=== PATIENT | female | born 1950 | race Hispanic/Latino ===

== ENCOUNTER → 2018-08-08 | Outpatient (CLI) | payer OTHER, MEDICARE ==
[~2018-08-08] MED LIST: DEXL60CA3 PO; DICY10CA13 PO; DULO30CA2 PO; ESOM40CA PO; INSLAN SQ; INSU100I3 SQ; METF-444 PO; ONDA4TAB9 PO
== END | disposition home or self-care (01) ==
LOC: OIH 14:38
PROVIDERS: ATTEND Family Medicine
DX: M47.814 Spondylosis without myelopathy or radiculopathy, thoracic region (principal)
CPT/HCPCS: 71100

== ENCOUNTER → 2019-04-16 | Outpatient (CLI) | payer MEDICARE, OTHER ==
[~2019-04-16] MED LIST changes: +ONDA-104 PO; -ONDA4TAB9 PO
== END | disposition home or self-care (01) ==
LOC: OIH 12:01
PROVIDERS: ATTEND Family Medicine
DX: R05 Cough (principal)
CPT/HCPCS: 71046

== ENCOUNTER → 2020-07-24 | Outpatient (CLI) | payer OTHER, MEDICARE | END | disposition home or self-care (01) | LOC: OIH 11:11 | PROVIDERS: ATTEND Internal Medicine | DX: J44.9 Chronic obstructive pulmonary disease, unspecified (principal) | CPT/HCPCS: 71046 ==

== ENCOUNTER 2021-10-28 12:51 | Emergency (ER) | payer OTHER, MEDICARE ==
[~2021-10-28] VITALS: Ht 157.5 cm; Wt 73.5 kg
[2021-10-28 12:53] VITALS: BP 176/70
[2021-10-28 13:16] LABS: BASOPHILS % (AUTO) 0.7 % (0.0-5.0); EOSINOPHILS % (AUTO) 2.5 % (0.0-8.0); HEMATOCRIT 39.5 % (36-48); LYMPHOCYTES % (AUTO) 28.6 % (21.0-51.0); MEAN CORPUSCULAR HEMOGLOBIN 28.3 pg (27.0-33.0); MEAN CORPUSCULAR HGB CONC 32.9 g/dL (32.0-36.0); MEAN CORPUSCULAR VOLUME 86.1 fL (79-99); MONOCYTES % (AUTO) 7.1 % (3.0-13.0); NEUTROPHILS % (AUTO) 60.7 % (40.0-77.0); PLATELET COUNT (AUTO) 130 K/uL (130-400); RED BLOOD CELL COUNT(AUTO) 4.59 MIL/uL (4.00-5.50); RED CELL DISTRIBUTION WIDTH 13.6 % (11.0-15.5); WHITE BLOOD COUNT (AUTO) 4.5 K/uL (4.8-10.8)
[2021-10-28 13:31] LABS: CREATININE 1.1 mg/dL (0.5-1.5); POTASSIUM 4.4 mmol/L (3.5-5.1)
[2021-10-28 13:35] LABS: ALBUMIN 3.5 g/dL (3.5-5.0); TOTAL PROTEIN, SERUM 7.4 g/dL (6.0-8.3)
[2021-10-28 14:32] LABS: APPEARANCE,URINE CLEAR (CLEAR); BILIRUBIN,URINE NEGATIVE (NEGATIVE); COLOR,URINE YELLOW (YELLOW); GLUCOSE, URINE (UA) NEGATIVE (NEGATIVE); KETONES,URINE NEGATIVE (NEGATIVE); LEUKOCYTE ESTERASE ,URINE NEGATIVE (NEGATIVE); NITRATE,URINE NEGATIVE (NEGATIVE); OCCULT BLOOD,URINE SMALL (NEGATIVE); PROTEIN,URINE TRACE mg/dL (NEGATIVE); UROBILINOGEN,URINE 0.2 mg/dL (0.2-1.0)
[2021-10-28 14:40] LABS: BACTERIA,URINE Rare /HPF (None Seen); RBC,URINE 0-1 /HPF (0-1); SQUAMOUS EPITHELIAL CELL,UR Few /HPF (0-2)
== END 2021-10-28 16:59 | disposition home or self-care (01) ==
LOC: EDH 12:51
DX: R42 Dizziness and giddiness (principal); E11.9 Type 2 diabetes mellitus without complications; E78.00 Pure hypercholesterolemia, unspecified; Z79.899 Other long term (current) drug therapy
CPT/HCPCS: 36415; 80053; 81001; 84484; 85025; 93005; 93880

== ENCOUNTER → 2021-12-16 | Outpatient (CLI) | payer OTHER, MEDICARE | END | disposition home or self-care (01) | LOC: OIH 13:24 | PROVIDERS: ATTEND Internal Medicine Cardiovascular Disease | DX: I08.2 Rheumatic disorders of both aortic and tricuspid valves (principal); E11.9 Type 2 diabetes mellitus without complications; E78.5 Hyperlipidemia, unspecified; R42 Dizziness and giddiness | CPT/HCPCS: 93306 ==

== ENCOUNTER → 2021-12-31 | Outpatient (CLI) | payer OTHER, MEDICARE | END | disposition home or self-care (01) | LOC: SHCH 13:14 | PROVIDERS: ATTEND Internal Medicine Cardiovascular Disease | DX: I87.2 Venous insufficiency (chronic) (peripheral) (principal) | CPT/HCPCS: 93970 ==

== ENCOUNTER 2023-01-06 16:45 | Emergency (ER) | payer OTHER, MEDICARE ==
[~2023-01-06] VITALS: Ht 157.5 cm; Wt 78.9 kg
[~2023-01-06 16:45] MED LIST changes: +BENZ-226 PO; +BUDE10.2 IH; -DEXL60CA3 PO; -DICY10CA13 PO; -DULO30CA2 PO; -ESOM40CA PO; +FAMO40TA7 PO; +FLUT1BLS3 IH; +GLIM4TAB36 PO; +GUAI10LI14 PO; -INSLAN SQ; -INSU100I3 SQ; +LEVO25CA4 PO; -METF-444 PO; +MONT-39 PO; +NAPR-1023 PO; -ONDA-104 PO; +PANT40TA54 PO; +PIOG30TA70 PO; +SIMV40TA59 PO; +SITA100T12 PO; +SULF1TAB89 PO
[2023-01-06 17:08] VITALS: BP 179/75; PULSE 70; RESP 16
[2023-01-06] MEDS ORDERED: ACETAMINOPHEN 325 MG TAB PO ONE (19:00)
== END 2023-01-06 19:15 | disposition home or self-care (01) ==
LOC: EDH 16:45
DX: S20.212A Contusion of left front wall of thorax, initial encounter (principal); E11.9 Type 2 diabetes mellitus without complications; E78.00 Pure hypercholesterolemia, unspecified; Z79.51 Long term (current) use of inhaled steroids; Z79.84 Long term (current) use of oral hypoglycemic drugs; Z79.899 Other long term (current) drug therapy; Y99.8 Other external cause status; V89.2XXA Person injured in unspecified motor-vehicle accident, traffic, initial encounter; Y93.89 Activity, other specified; Y92.89 Other specified places as the place of occurrence of the external cause
CPT/HCPCS: 71101

== ENCOUNTER → 2024-02-16 | Outpatient (CLI) | payer OTHER, MEDICARE ==
[~2024-02-16] MED LIST changes: -FAMO40TA7 PO; -GUAI10LI14 PO; +METO10TA3 PO; -NAPR-1023 PO; +PREG150C47 PO; -SULF1TAB89 PO
--- NOTE | 2024-02-16 16:41 | HMCIMG ---
FOOT LIMITED 2VWS LT REASON: Pain in left hand, LOW BACKPAIN, FOOT PAIN, SHOULDER PAIN TECHNIQUE: 2 views were obtained. FINDINGS: There is no evidence of fracture or dislocation. There is no joint effusion. The soft tissues appear unremarkable. There is no evidence of a radiopaque foreign body. IMPRESSION: No acute findings.
--- NOTE | 2024-02-16 16:42 | HMCIMG ---
EXAM: LUMBAR SPINE 2-3VWS REASON: Pain in left hand, LOW BACKPAIN, FOOT PAIN, SHOULDER PAIN. COMPARISON: None. TECHNIQUE: 3 views of the lumbar spine were obtained. FINDINGS: There is normal appearance of the lumbar vertebral bodies. Disc interspace heights are preserved. Alignment is normal. There are no visible fractures. Soft tissues appear unremarkable. IMPRESSION: 1. Normal lumbar spine.
--- NOTE | 2024-02-16 16:42 | HMCIMG ---
SHOULDER COMP 2+VWS LT REASON: FOOT PAIN, KNEE PAIN TECHNIQUE: 2 views were obtained. FINDINGS: There is no evidence of fracture or dislocation. There is no joint effusion. The soft tissues appear unremarkable. There is no evidence of a radiopaque foreign body. IMPRESSION: No acute findings.
--- NOTE | 2024-02-16 16:43 | HMCIMG ---
SHOULDER COMP 2+VWS RT REASON: FOOT PAIN, KNEE PAIN, SAHOULDER PAIN TECHNIQUE: 2 views were obtained. FINDINGS: There is no evidence of fracture or dislocation. There is no joint effusion. The soft tissues appear unremarkable. There is no evidence of a radiopaque foreign body. IMPRESSION: No acute findings.
--- NOTE | 2024-02-16 16:44 | HMCIMG ---
HANDS BILAT, 2VWS EACH REASON: HAND PAIN COMPARISON: None TECHNIQUE: 2 views were obtained of each hand. FINDINGS: There is moderate osteoarthritis in the second through fifth IP joint of each hand. Remaining joint spaces appear better preserved. The radiocarpal joints where not well visualized. There are no focal osseous lesions. There are no abnormal calcifications. Soft tissues appear unremarkable. IMPRESSION: 1. 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
--- NOTE | 2024-02-16 16:45 | HMCIMG ---
FOOT COMP 3+VWS RT REASON: FOOT PAIN TECHNIQUE: 2 views were obtained. FINDINGS: There is no evidence of fracture or dislocation. There is no joint effusion. The soft tissues appear unremarkable. There is no evidence of a radiopaque foreign body. IMPRESSION: No acute findings.
--- NOTE | 2024-02-16 16:45 | HMCIMG ---
KNEE 2VW BILATERAL REASON: FOOT PAIN, KNEE PAIN COMPARISON: None TECHNIQUE: 2 views were obtained of each knee. FINDINGS: Both knees show normal findings. Joint spaces are preserved. There is no varus or valgus strangulation. There are no focal osseous lesions. There are no joint effusions. IMPRESSION: 1. Normal 2 view exam of each knee.
== END | disposition home or self-care (01) ==
LOC: OIH 13:59
PROVIDERS: ATTEND Internal Medicine
DX: M19.041 Primary osteoarthritis, right hand (principal); M19.042 Primary osteoarthritis, left hand; M54.16 Radiculopathy, lumbar region; M79.642 Pain in left hand; M79.672 Pain in left foot; M79.641 Pain in right hand; M79.671 Pain in right foot; M25.512 Pain in left shoulder; M25.511 Pain in right shoulder; M25.562 Pain in left knee; M25.561 Pain in right knee
CPT/HCPCS: 72100; 73030; 73565; 73620; 73630; 73560

== ENCOUNTER 2024-09-25 14:44 | Inpatient (IN) | payer OTHER, MEDICARE ==
[~2024-09-25] VITALS: Ht 154.9 cm; Wt 78.4 kg
[~2024-09-25 14:44] MED LIST changes: +BACL5TAB PO; -BENZ-226 PO; -BUDE10.2 IH; -FLUT1BLS3 IH; -LEVO25CA4 PO; +LEVO25CA5 PO; +RESM80TA PO
--- NOTE | 2024-09-25 15:23 | ERN ---
ED Note History of Present Illness Stated Complaint: BLOOD IN STOOL/ WEAKNESS Chief Complaint: Bloody Stool Time Seen by MD: 14:45 Dictation: Patient is a 53-year-old female coming in today with complaints of melena stools and generalized body weakness with decreased appetite onset this morning. She states she ate very little yesterday and then this morning noticed she was having melena stools. She denies abdominal pain no change in urination. Denies any use of blood thinners. No fever no chills. Allergies: Coded Allergies: No Known Allergies (Unverified Allergy, Unknown, 08/30/13) Home Meds Active Scripts Pantoprazole Sodium (Pantoprazole Sodium) 40 Mg Tablet.dr, 40 MG PO BID, #60 TAB 0 Refills Prov:JOSEFINA MOSQUEDA ELECTRICAL INSTALLATION SUPERVISOR 02/09/23 Reported Medications Baclofen (Baclofen) 5 Mg Tablet, 5 TAB PO HS 07/17/24 Resmetirom (Rezdiffra) 80 Mg Tablet, 80 MG PE PO AM 07/17/24 Pregabalin (Pregabalin) 150 Mg Capsule, 150 MG PO BID, CAP 09/15/23 Metoclopramide HCl (Metoclopramide HCl) 10 Mg Tablet, 10 MG PO TIDAC, TAB 09/15/23 Simvastatin (ZOCOR) 40 Mg Tablet, 10 MG PO HS, TAB 03/27/22 Levothyroxine Sodium (Levothyroxine) 25 Mcg Capsule, 25 MCG PO ACBKFST, CAP 03/27/22 Pioglitazone HCl (Pioglitazone HCl) 30 Mg Tablet, 30 MG PO DAILY, TAB 03/27/22 Sitagliptin Phosphate (Januvia) 100 Mg Tablet, 100 MG PO DAILY, TAB 03/27/22 Montelukast Sodium (Montelukast Sodium) 10 Mg Tablet, 10 MG PO DAILY, TAB 03/27/22 Glimepiride (Glimepiride) 4 Mg Tablet, 8 MG PO DAILY, TAB 03/27/22 Past Medical History Past Medical History: Diabetes-Type II, Hypertension Additional Past Medical Hx: OSTEOPEROSIS Surgical History: None Social History: Negative, Lives with family History: Not Applicable RN Note Reviewed/Agreed w/PFSH: Yes Review of System Dictation CONSTITUTIONAL: NEGATIVE EXCEPT FOR HPI GB W HEAD/FACE: NEGATIVE EXCEPT FOR HPI EENT: NEGATIVE EXCEPT FOR HPI RESPIRATORY: NEGATIVE EXCEPT FOR HPI GASTROINTESTINAL/ABDOMINAL: NEGATIVE EXCEPT FOR HPI MELENA STOOLS ONSET THIS MORNING GENITOURINARY: NEGATIVE EXCEPT FOR HPI MUSCULOSKELETAL: NEGATIVE EXCEPT FOR HPI INTEGUMENTARY: NEGATIVE EXCEPT FOR HPI NEUROLOGICAL/PSYCH: NEGATIVE EXCEPT FOR HPI HEMATOLOGIC/LYMPHATIC: NEGATIVE EXCEPT FOR HPI ALL SYSTEMS NEGATIVE, EXCEPT NOTED ABOVE. 13 POINT REVIEW OF SYSTEMS ASSESSED AND ALL NEGATIVE EXCEPT FOR ABOVE. Initial Vital Sign VS Vital Signs Date Time Temp Pulse Resp B/P (MAP) Pulse Ox O2 Delivery O2 Flow Rate FiO2 09/25/24 15:10 98.2 94 22 108/64 100 Room Air 09/25/24 15:25 0 21 Physical Exam Dictation VITAL SIGNS REVIEWED GENERAL APPEARANCE: ALERT, ORIENTED X 3, NO ACUTE DISTRESS, WELL DEVELOPED, NOURISHED. MILDLY OBESE HEAD AND FACE: NON-TRAUMATIC. EYES: PERRL, PINK CONJUNCTIVAS, EYELID NO TRAUMA, ANTERIOR CHAMBER WITH ARCUS SENILIS. EARS: PINNAS INTACT AND NO SIGNS OF TRAUMA OR ERYTHEMA EAR CANALS CLEAR AND NO DISCHARGE TM NO ERYTHEMA NOSE: NO DISCHARGE, NO BLEEDING. OROPHARYNX: MOUTH NORMAL, TONGUE PAIN PHARYNX CLEAR,NO ERYTHEMA, TONSILS NO EXUDATES, NO ABSCESSES NOTED, MUCOUS MEMBRANE MOIST NECK: SUPPLE, NON-TENDER, NO THYROMEGALY, NO MASSES, NO JVD, NO BRUITS BREAST:DEFERRED CHEST:NO TENDERNESS, NO CREPITUS, NO PARADOXICAL MOVEMENT, NO RETRACTIONS LUNGS:CLEAR, WELL-VENTILATED, SYMMETRIC, NO RALES, NO WHEEZING, NO RHONCHI, NO STRIDOR, GOOD BREATH SOUNDS BILATERALLY HEART: REGULAR RATE, REGULAR RHYTHM, NO MURMUR, NO GALLOPS VASCULAR: NO PERIPHERAL EDEMA, ABDOMEN: SOFT, POSITIVE BOWEL SOUNDS, NONDISTENDED, NO GUARDING, NONTENDER, NO REBOUND, NO MASSES NO HEPATOMEGALY, NO SPLENOMEGALY, NO GLEASON'S SIGN, NO HERNIAS. RECTAL: DEFERRED GENITAL: DEFERRED NEUROLOGICAL: NORMAL SPEECH, MOTOR FUNCTION INTACT, SENSORY FUNCTION INTACT MUSCULOSKELETAL: NECK NONTENDER, FULL RANGE OF MOTION, BACK NONTENDER, FULL RANGE OF MOTION, EXTREMITIES: NONTENDER, FULL RANGE OF MOTION SKIN: COLOR PINK, DRY, NO TURGOR, NO RASH, NO LACERATIONS, NO ABRASIONS, NO CONTUSIONS. LYMPHATIC: DEFERRED Results (Laboratory/Radiology) Laboratory/Radiology Laboratory Tests Test 09/25/24 16:03 09/25/24 17:17 White Blood Count 7.0 K/uL (4.8-10.8) Red Blood Count 3.18 MIL/uL (4.00-5.50) L Hemoglobin 9.2 g/dL (12.0-16.0) L Hematocrit 28.2 % (36-48) L Mean Corpuscular Volume 88.7 fL (79-99) Mean Corpuscular Hemoglobin 28.9 pg (27.0-33.0) Mean Corpuscular Hemoglobin Concent 32.6 g/dL (32.0-36.0) Red Cell Distribution Width 14.7 % (11.0-15.5) Platelet Count 138 K/uL (130-400) Mean Platelet Volume 11.8 fL (7.5-10.5) H Immature Granulocyte % (Auto) 0.6 % (0-1) Neutrophils (%) (Auto) 65.4 % (40.0-77.0) Lymphocytes (%) (Auto) 25.2 % (21.0-51.0) Monocytes (%) (Auto) 7.8 % (3.0-13.0) Eosinophils (%) (Auto) 0.6 % (0.0-8.0) Basophils (%) (Auto) 0.4 % (0.0-5.0) Neutrophils # (Auto) 4.6 K/uL (1.8-7.7) Lymphocytes # (Auto) 1.8 K/uL (1.0-4.8) Monocytes # (Auto) 0.6 K/uL (0.1-1.0) Eosinophils # (Auto) 0.04 K/uL (0.00-0.70) Basophils # (Auto) 0.03 K/uL (0.00-0.20) Absolute Immature Granulocyte (auto 0.04 K/uL (0-1) Nucleated Red Blood Cells 0.0 % (0.0-0.19) Sodium Level 139 mmol/L (136-145) Potassium Level 4.9 mmol/L (3.5-5.1) Chloride Level 106 mmol/L (101-111) Carbon Dioxide Level 27 mmol/L (21-32) Blood Urea Nitrogen 82 mg/dL (7-18) *H Creatinine 1.1 mg/dL (0.5-1.0) H Glomerular Filtration Rate Calc 53 mL/min (>90) Random Glucose 146 mg/dL (70-105) H Total Calcium 8.8 mg/dL (8.5-10.1) Troponin I High Sensitivity 10 ng/L (4-50) Lipase 35 U/L (16-77) Urine Color COLORLESS (YELLOW) Urine Appearance CLEAR (CLEAR) Urine pH 5.0 (5.0-8.0) Urine Specific [place] 1.018 (1.001-1.031) Urine Protein NEGATIVE mg/dL (NEGATIVE) Urine Glucose (UA) NEGATIVE mg/dL (NEGATIVE) Urine Ketones NEGATIVE mg/dL (NEGATIVE) Urine Occult Blood MODERATE (NEGATIVE) H Urine Nitrate NEGATIVE (NEGATIVE) Urine Bilirubin NEGATIVE mg/dL (NEGATIVE) Urine Urobilinogen 0.2 mg/dL (0.2-1.0) Urine Leukocyte Esterase 75 [place]/uL (NEGATIVE) H Urine RBC None /HPF (0-1) Urine WBC 2-5 /HPF (0-1) H Urine Squamous Epithelial Cells RARE /HPF (0-2) Urine Bacteria None /HPF (None Seen) Labs Reviewed?: Yes ED Course ED Course Orders Procedure Category Date Status Time Cbc With Differential LAB 09/25/24 Complete 15:21 Urinalysis Profile LAB 09/25/24 Complete 15:21 Occult Blood Stool LAB 09/25/24 In Process Single Only 15:21 Lipase LAB 09/25/24 Complete 15:21 Basic Metabolic Panel LAB 09/25/24 Complete 15:21 Famotidine 20mg Vial PHA 09/25/24 Complete (Pepcid 20mg Vial) 15:30 Troponin I High LAB 09/25/24 Complete Sensitivity 15:41 12 Lead Ekg Tracing- EKG 09/25/24 Complete Technical 15:41 Culture Urine FRANK 09/25/24 In Process 17:29 Current Medications Medications (Trade) Dose Ordered Sig/Adam Route PRN Reason Start Time Stop Time Status Last Admin Dose Admin Famotidine (Pepcid 20mg Vial) 20 mg ONCE ONCE IV 09/25/24 15:30 09/25/24 15:31 DC 09/25/24 16:58 Vital Signs Date Time Temp Pulse Resp B/P (MAP) Pulse Ox O2 Delivery O2 Flow Rate FiO2 09/25/24 15:25 98.2 91 22 108/64 100 Room Air* 0 21 09/25/24 15:10 98.2 94 22 108/64 100 Room Air 1740/spoke with Cruz PLATA hospitalist reviewed guaiac stool, labs and interventions to include Pepcid he agreed to admit patient. Medical Decision Making MDM MDM: Differential diagnosis: GI bleed/anemia/electrolyte imbalance/dehydration/ACS for weakness Rationale: Tests considered and ordered secondary to shared decision making include: labs, ECG and radiology Previous outside records reviewed: Old ER visits. Risk of complication and/or morbidity or mortality of patient management: None Medications-Per medication reconciliation Need for hospitalization: Patient does meet criteria for hospitalization. NPO, ppi, fluids, gastroenterology follow up Need for emergency major/minor surgery: No There are no social concerns with this patient. Prescription drug management Prescriptions will include symptomatic care Patient's prior external medical records from other ER visits were reviewed by me as indicated. Prior testing and results from previous visits were reviewed. Prior tests were taken into account with medical decision making and resource utilization, independent historian/historians were used to obtain complete medical history. I independently interpreted the test that were performed, results were reviewed by me and considered findings on radiology if ordered. Medical management and examination interpretation discussions were had by me with other qualified healthcare professionals as indicated for the patient's care. DX & DISP Disposition: Inpatient Decision to Admit Time: 17:45 Departure Impression: Primary Impression: GI bleeding Additional Impressions: Anemia, Stage 3 chronic kidney disease, Uncontrolled diabetes mellitus Condition: Stable Referrals: DEANGELO TUTTLE MD (PCP) Time of Disposition: 17:45 I have reviewed the case, and I agree with, Diagnosis and Plan SADIA SHANE ELECTRICAL INSTALLATION SUPERVISOR Sep 25, 2024 15:23
--- NOTE | 2024-09-25 15:52 | EKG ---
[facility] Test Date: 2024-09-25 Test Time: 15:48:26 Pat Name: AYANNA HERNANDEZ Department: ED Room: Gender: F Systems Analyst Developer: [id number] : [id number] Requested By: SADIA SHANE Order Number: [id number] Reading MD: Hank Nunn Measurements Intervals [place] Rate: 80 P: 53 DE: 130 QRS: -36 QRSD: 88 T: 47 QT: 351 QTc: 406 Interpretive Statements Sinus rhythm Left axis deviation Compared to ECG 07/16/2024 13:37:43 Left-axis deviation now present Electronically Signed On 09-25-2024 18:18:16 CDT by Hank Nunn Please click the below link to view image of tracing.
[2024-09-25 16:12] LABS: BASOPHILS # (AUTO) 0.03 K/uL (0.00-0.20); BASOPHILS % (AUTO) 0.4 % (0.0-5.0); EOSINOPHILS # (AUTO) 0.04 K/uL (0.00-0.70); EOSINOPHILS % (AUTO) 0.6 % (0.0-8.0); HEMATOCRIT 28.2 % (36-48); IMMATURE GRANULOCYTE ABSOLUTE 0.04 K/uL (0-1); LYMPHOCYTES # (AUTO) 1.8 K/uL (1.0-4.8); LYMPHOCYTES % (AUTO) 25.2 % (21.0-51.0); MEAN CORPUSCULAR HEMOGLOBIN 28.9 pg (27.0-33.0); MEAN CORPUSCULAR HGB CONC 32.6 g/dL (32.0-36.0); MEAN CORPUSCULAR VOLUME 88.7 fL (79-99); MONOCYTES # (AUTO) 0.6 K/uL (0.1-1.0); MONOCYTES % (AUTO) 7.8 % (3.0-13.0); NEUTROPHILS # (AUTO) 4.6 K/uL (1.8-7.7); NEUTROPHILS % (AUTO) 65.4 % (40.0-77.0); PLATELET COUNT (AUTO) 138 K/uL (130-400); RED BLOOD CELL COUNT(AUTO) 3.18 MIL/uL (4.00-5.50); RED CELL DISTRIBUTION WIDTH 14.7 % (11.0-15.5)
[2024-09-25 16:34] LABS: CREATININE 1.1 mg/dL (0.5-1.0); POTASSIUM 4.9 mmol/L (3.5-5.1)
[2024-09-25] MEDS: FAMOTIDINE 20MG VIAL IV ONE (16:58)
[2024-09-25 17:26] LABS: APPEARANCE,URINE CLEAR (CLEAR); BILIRUBIN,URINE NEGATIVE (NEGATIVE); COLOR,URINE COLORLESS (YELLOW); GLUCOSE, URINE (UA) NEGATIVE (NEGATIVE); KETONES,URINE NEGATIVE (NEGATIVE); LEUKOCYTE ESTERASE ,URINE 75 Leu/uL (NEGATIVE); NITRATE,URINE NEGATIVE (NEGATIVE); OCCULT BLOOD,URINE MODERATE (NEGATIVE); PROTEIN,URINE NEGATIVE (NEGATIVE); UROBILINOGEN,URINE 0.2 mg/dL (0.2-1.0)
[2024-09-25 17:29] LABS: ADD UA MICROSCOPIC YES
[2024-09-25 17:36] LABS: SQUAMOUS EPITHELIAL CELL,UR RARE /HPF (0-2)
--- NOTE | 2024-09-25 17:53 | HP ---
[facility] HISTORY & PHYSICAL Date Patient Seen: Sep 25, 2024 Time of Visit: 1900 Supervising Physician: [Dr. Christian Reyna] Primary Care Physician: [ Dr. Soledad Browne] Outpatient Specialists: [ ] Inpatient Consults: [GI-Dr. Hawley ] PROBLEM LIST: Melena-POA Blood-loss anemia-POA LINO on CKD 3-POA Dehydration-POA Enterocolitis per CT AP-POA Primary HTN Diabetes mellitus Chronic pain HLD Chronic anemia HX of small bowel AVM's Prior EGD revealed erythematous duodenopathy (07/2024) PLAN: -Admit to medsurg -Type and screen, transfuse if Hg drops below 7 -Clear liquids then NPO p MN -Consult GI, Dr. Hawley, appreciate recommendation -IV Protonix BID -obtain iron studies -Avoid NSAIDS and blood thinners -Manage N/V and pain PRN -IV fluids for hydration -CT abdomen and pelvis revealed enterocolitis: We will start on IV Zosyn -obtain renal ultrasound HPI: [Patient is a 73-year-old female with PMH significant for HTN, dm, chronic anemia, CKD who was presented to the ED concerning acute onset man in his started this morning. Patient claims that she did not eat or drink anything when she started having black stool. She reports a total of 8-10 episodes of melanotic stool. She denies other constitutional symptoms and there was no hematemesis, hematochezia or abdominal pain. Patient reports that around July, she had a similar episode and had undergone endoscopic procedure but without significant findings. Physical assessment was unrevealing without abdominal tenderness. Goals of care were discussed with the patient verbalizes understanding and agreement. Clinical Specialty Rep services provided by labor supervisor Americo. ] PAST MEDICAL HX: see above PAST SURGICAL HX: noncontributory SOCIAL HISTORY: No tobacco, ETOH, or illicit drug use Coded Allergies: No Known Allergies (Unverified Allergy, Unknown, 08/30/13) REVIEW OF SYSTEMS: 12 point ROS reviewed with patient. Pertinent positives mentioned above. Otherwise negative. PHYSICAL EXAM: GENERAL: alert, weak, awake oriented x 3 HEENT: EOMI, Sclera non icteric, moist mucosa NECK: Supple, no JVD, trachea midline LUNGS: Clear breath sounds bilaterally. No wheezes HEART: Regular rate and rhythm. Normal S1 and S2, without murmurs ABD: Abdomen soft, nontender. Bowel sounds present EXT: No clubbing cyanosis or edema NEURO: Alert and oriented to person, follows commands Vital Signs (last 8hr) Date Time Temp Pulse Resp B/P (MAP) Pulse Ox O2 Delivery O2 Flow Rate FiO2 09/25/24 15:25 98.2 91 22 108/64 100 Room Air* 0 21 09/25/24 15:10 98.2 94 22 108/64 100 Room Air LABS: Hematology Labs: Test 09/25/24 16:03 Range/Units White Blood Count 7.0 4.8-10.8 K/uL Red Blood Count 3.18 L 4.00-5.50 MIL/uL Hemoglobin 9.2 L 12.0-16.0 g/dL Hematocrit 28.2 L 36-48 % Mean Corpuscular Volume 88.7 79-99 fL Mean Corpuscular Hemoglobin 28.9 27.0-33.0 pg Mean Corpuscular Hemoglobin Concent 32.6 32.0-36.0 g/dL Red Cell Distribution Width 14.7 11.0-15.5 % Platelet Count 138 130-400 K/uL Mean Platelet Volume 11.8 H 7.5-10.5 fL Immature Granulocyte % (Auto) 0.6 0-1 % Neutrophils (%) (Auto) 65.4 40.0-77.0 % Lymphocytes (%) (Auto) 25.2 21.0-51.0 % Monocytes (%) (Auto) 7.8 3.0-13.0 % Eosinophils (%) (Auto) 0.6 0.0-8.0 % Basophils (%) (Auto) 0.4 0.0-5.0 % Neutrophils # (Auto) 4.6 1.8-7.7 K/uL Lymphocytes # (Auto) 1.8 1.0-4.8 K/uL Monocytes # (Auto) 0.6 0.1-1.0 K/uL Eosinophils # (Auto) 0.04 0.00-0.70 K/uL Basophils # (Auto) 0.03 0.00-0.20 K/uL Absolute Immature Granulocyte (auto 0.04 0-1 K/uL Nucleated Red Blood Cells 0.0 0.0-0.19 % Chemistry Labs: Test 09/25/24 16:03 Range/Units Sodium Level 139 136-145 mmol/L Potassium Level 4.9 3.5-5.1 mmol/L Chloride Level 106 101-111 mmol/L Carbon Dioxide Level 27 21-32 mmol/L Blood Urea Nitrogen 82 *H 7-18 mg/dL Creatinine 1.1 H 0.5-1.0 mg/dL Glomerular Filtration Rate Calc 53 >90 mL/min Random Glucose 146 H 70-105 mg/dL Total Calcium 8.8 8.5-10.1 mg/dL Troponin I High Sensitivity 10 4-50 ng/L Lipase 35 16-77 U/L DIAGNOSTICS / RADIOLOGY RESULTS: [ ] PLAN NEURO: Minimize central acting medications as possible. Maintain fall precautions, adequate lighting during the day PULMONARY: Supplemental 02 as needed. Maintain aspiration precautions at all times CARDIOVASCULAR: Follow hemodynamics. Vital signs per facility protocol GI & NUTRITION: Continue with nutritional support. Continue stool softeners and laxatives as needed. KIDNEYS & ELECTROLYTES: Strict monitoring of intake, output and overall fluid balance. Avoid nephrotoxic medications to the extent possible. Medications to be dosed according to renal function. Monitor electrolytes and replace as needed ENDOCRINE: Maintain blood glucose between 100-180 at all times. Hypoglycemia protocol in place INFECTIOUS DISEASE: Trend temperature, WBC and procalcitonin level Follow cultures, deescalate antibiotics as soon as possible. Panculture if new onset fever ONCOLOGY/HEMATOLOGY/COAGULATION: Monitor for s/s of bleeding Monitor hemoglobin, coagulation studies as needed SKIN: Pressure ulcer prevention per facility protocol Specialty mattress ORTHO/REHAB: Continue PT/OT Prophylaxis: Continue GI and DVT prophylaxis: No anticoagulant due to GI bleed Code Status: Full Resuscitation Disposition: TBD Other: Total patient care time : 35 minutes SYLVAIN REAVES Sep 25, 2024 17:53
[2024-09-25] MEDS ORDERED: LAbetaLOL 20MG SYG IV PRN (18:00)
[2024-09-25] MEDS ORDERED: cloNIDine HCL 0.1 MG TABLET PO PRN (18:00)
[2024-09-25] MEDS ORDERED: acetaMINOPHEN 325 MG TAB PO PRN (18:00)
[2024-09-25] MEDS ORDERED: LACTULOSE 20 GM/30 ML UDCUP PO PRN (18:00)
[2024-09-25] MEDS ORDERED: ondanSETRON 4MG INJ IVP PRN (18:00)
[2024-09-25 18:16] LABS: RETICULOCYTE % (AUTO) 2.2 % (0.42-2.23)
[2024-09-25 18:22] LABS: HEMATOCRIT 25.9 % (36-48)
[2024-09-25 18:36] LABS: % IRON SATURATION 81.8 % (22-44)
[2024-09-25] MEDS: LACTATED RINGERS 1000ML 1,000 ML IV SCH (18:43)
[2024-09-25] MEDS: 0.9% NACL 500ML IV.SOLN 500 ML IV ONE (18:46)
--- NOTE | 2024-09-25 20:35 | NUR ---
GI CONSULT COMPLETED, SPOKE WITH DR PERAZA. TELEPHONE ORDERS RECEIVED, PLACED IN PT CHART. CSO MADE AWARE OF EGD MORNING SCHEDULE.
[2024-09-25] MEDS: INSULIN humuLIN R 100 UNIT/ML 3ML SQ SCH (21:00)
[2024-09-25] MEDS ORDERED: PANTOPrazole 40 MG/VIAL IVP SCH (21:00)
[2024-09-25] MEDS: PANTOPrazole 40MG INJ 80 MG in 0.9%NACL 100ML 100 ML IV SCH (21:20)
[2024-09-25] MEDS: octREOtide aceTATe 100 MCG/ML AMP IV ONE (21:20)
[2024-09-25] MEDS: octREOtide aceTATe 1,250 MCG in 0.9% NACL 250ML 250 ML IV SCH (21:21)
[2024-09-25 21:30] LABS: INR 1.08 (0.85-1.15); PROTHROMBIN TIME 11.4 SEC (9.6-11.6)
[2024-09-25 21:31] LABS: PARTIAL THROMBOPLASTIN TIME 23.2 SEC (26.3-35.5)
--- NOTE | 2024-09-25 22:06 | HMCIMG ---
CT ABDOMEN W/O CONTRAST HISTORY: melena TECHNIQUE: CT ABDOMEN W/O CONTRAST . Oral contrast was not given. Sagittal and coronal reformats were obtained. CT was performed with one or more of the following dose reduction techniques: Automated exposure control, adjustment of the mA and/or kV according to the patient's size, or use of the iterative reconstruction technique. Comparison: None. FINDINGS: Mild atelectatic changes are seen in the lung bases. Liver and gallbladder are within normal limits. The spleen, pancreas, and adrenal glands are within normal limits. No hydronephrosis seen. Atrophic lobulated right kidney. Consider correlation with renal ultrasound. Fluid-filled loops of small bowel and colon which may represent enterocolitis the proper clinical setting. No bowel obstruction identified. Appendix is not clearly visualized limiting evaluation. Correlate clinically. Degenerative changes of the spine. Visualized aorta is normal in caliber. IMPRESSION: 1. No hydronephrosis seen. Atrophic lobulated right kidney. Consider correlation with renal ultrasound. 2. Fluid-filled loops of small bowel and colon which may represent enterocolitis the proper clinical setting.
--- NOTE | 2024-09-25 22:32 | NUR ---
REPORT GIVEN TO JCARLOS BLAKELY.
[2024-09-25 23:00] VITALS: O2SAT 99
[2024-09-25] MEDS ORDERED: FERS325 PO (23:15)
--- NOTE | 2024-09-25 23:21 | CONS ---
GASTROENTEROLOGY CONSULTATION NOTE Date of Consultation: Sep 25, 2024 Time of Consultation: 23:21 History of Present Illness: [ ] Review of Systems: CONSTITUTIONAL: No malaise or change in sensation of wellbeing. ENMT: No rhinorrhea, otorrhea, sinus pain, ear ache. CARDIOVASCULAR: No angina, palpitations, orthopnea or paroxysmal dyspnea. RESPIRATORY: No SOB. GASTROINTESTINAL: No abdominal pain, nausea, vomiting, diarrhea, hematemesis, melena or change in the patient's habitual bowel movements consistency/number. GENITOURINARY: No dysuria, hematuria or change in bladder continence. MUSCULOSKELETAL: No new muscle pain or decrease in muscular strength. No new joint swelling, redness or tenderness. SKIN: No new rash. Past Medical History: [ ] Past Surgical History: [ ] Past Social History: [ ] Family History: [ ] Coded Allergies: No Known Allergies (Unverified Allergy, Unknown, 08/30/13) Physical Exam: GEN: Awake, alert, oriented in person, time and place, and in no acute distress. HEENT: No sinus tenderness. Tympanic membranes were not examined. No rhinorrhea. Oral pharyngeal mucosa is pink, moist and within normal limits. Neck is supple with no cervical lymphadenopathy, thyromegaly or JVD. CHEST: Inspection, palpation and percussion of the chest were unremarkable. Lung auscultation revealed normal breath sounds bilaterally. CARDIAC: PMI is within normal limits. Heart sounds are regular. Normal S1, S2. No gallop or murmur. ABD: Soft, non-tender and not distended. No peritoneal signs on palpation. No organomegaly. Normal bowel sounds. EXT: No cyanosis or clubbing. No edema. SKIN: Intact. No rashes. JOINTS: No evidence of synovitis or acute arthritis. NEURO: Alert and oriented to name, place and person. Cranial nerve examination is unremarkable. No focal motor deficits. Normal speech. Gait is normal. Strength is normal. Vital Sign (Last 24 Hours) 09/25/24 22:16 Temp 98.1 Pulse 78 Resp 20 B/P (MAP) 159/64 Pulse Ox 100 O2 Delivery Room Air* O2 Flow Rate 0 FiO2 21 Laboratory: [ ] Laboratory: Test 09/25/24 21:11 09/25/24 21:05 09/25/24 18:09 09/25/24 17:17 Range/Units Whole Blood Glucose 95 70-110 MG/DL Prothrombin Time 11.4 9.6-11.6 SEC Prothromb Time International Ratio 1.08 0.85-1.15 Activated Partial Thromboplast Time 23.2 L 26.3-35.5 SEC Hemoglobin 8.4 L 12.0-16.0 g/dL Hematocrit 25.9 L 36-48 % Urine Color COLORLESS YELLOW Urine Appearance CLEAR CLEAR Urine pH 5.0 5.0-8.0 Urine Specific [place] 1.018 1.001-1.031 Urine Protein NEGATIVE NEGATIVE mg/dL Urine Glucose (UA) NEGATIVE NEGATIVE mg/dL Urine Ketones NEGATIVE NEGATIVE mg/dL Urine Occult Blood MODERATE H NEGATIVE Urine Nitrate NEGATIVE NEGATIVE Urine Bilirubin NEGATIVE NEGATIVE mg/dL Urine Urobilinogen 0.2 0.2-1.0 mg/dL Urine Leukocyte Esterase 75 H NEGATIVE [place]/uL Urine RBC None 0-1 /HPF Urine WBC 2-5 H 0-1 /HPF Urine Squamous Epithelial Cells RARE 0-2 /HPF Urine Bacteria None None Seen /HPF Stool Occult Blood POSITIVE H NEGATIVE Test 09/25/24 16:03 09/25/24 16:01 Range/Units White Blood Count 7.0 4.8-10.8 K/uL Red Blood Count 3.18 L 4.00-5.50 MIL/uL Mean Corpuscular Volume 88.7 79-99 fL Mean Corpuscular Hemoglobin 28.9 27.0-33.0 pg Mean Corpuscular Hemoglobin Concent 32.6 32.0-36.0 g/dL Red Cell Distribution Width 14.7 11.0-15.5 % Platelet Count 138 130-400 K/uL Mean Platelet Volume 11.8 H 7.5-10.5 fL Immature Granulocyte % (Auto) 0.6 0-1 % Neutrophils (%) (Auto) 65.4 40.0-77.0 % Lymphocytes (%) (Auto) 25.2 21.0-51.0 % Monocytes (%) (Auto) 7.8 3.0-13.0 % Eosinophils (%) (Auto) 0.6 0.0-8.0 % Basophils (%) (Auto) 0.4 0.0-5.0 % Neutrophils # (Auto) 4.6 1.8-7.7 K/uL Lymphocytes # (Auto) 1.8 1.0-4.8 K/uL Monocytes # (Auto) 0.6 0.1-1.0 K/uL Eosinophils # (Auto) 0.04 0.00-0.70 K/uL Basophils # (Auto) 0.03 0.00-0.20 K/uL Absolute Immature Granulocyte (auto 0.04 0-1 K/uL Nucleated Red Blood Cells 0.0 0.0-0.19 % Sodium Level 139 136-145 mmol/L Potassium Level 4.9 3.5-5.1 mmol/L Chloride Level 106 101-111 mmol/L Carbon Dioxide Level 27 21-32 mmol/L Blood Urea Nitrogen 82 *H 7-18 mg/dL Creatinine 1.1 H 0.5-1.0 mg/dL Glomerular Filtration Rate Calc 53 >90 mL/min Random Glucose 146 H 70-105 mg/dL Total Calcium 8.8 8.5-10.1 mg/dL Troponin I High Sensitivity 10 4-50 ng/L Lipase 35 16-77 U/L Reticulocyte Count (auto) 2.72942 0.42-2.23 % Immature Reticulocyte Fraction 16.70 H 0.18-0.48 % Iron Level 248 H 50-170 mcg/dL Total Iron Binding Capacity 303 250-450 mcg/dL Percent Iron Saturation 81.8 H 22-44 % Ferritin 55 15-150 ng/mL Current Medications Medications (Trade) Dose Ordered Sig/Adam Route PRN Reason Start Time Stop Time Status Last Admin Dose Admin Acetaminophen (TYLenol 325MG TAB) 650 mg Q6H PRN PO FEVER/MILD PAIN LEVEL 1-3 09/25/24 18:00 10/25/24 17:59 Clonidine HCl (CATApres 0.1 mg TAB) 0.1 mg Q6H PRN PO IF SBP GREATER THAN 160 09/25/24 18:00 10/25/24 17:59 Insulin Human Regular (humuLIN R 100 UNIT/ML 3ML) INSULIN SLIDING SCAL... ACHS SQ 09/25/24 21:00 10/25/24 20:59 Labetalol HCl (TRANdate 20MG SYG) 10 mg Q2H PRN IV SBP GREATER THAN 180 09/25/24 18:00 10/25/24 17:59 Lactated Ringer's 1,000 ml @ 125 mls/hr Q8H IV 09/25/24 18:00 10/25/24 17:59 09/25/24 18:43 125 MLS/HR Lactulose (Constulose 20gm/ 30ml Udcup) 20 gm Q6H PRN PO CONSTIPATION 09/25/24 18:00 10/25/24 17:59 Octreotide Acetate 1250 mcg/ Sodium Chloride 250 ml @ 0 mls/hr PROTOCOL IV 09/25/24 21:00 10/25/24 20:59 09/25/24 21:21 5 MLS/HR Ondansetron HCl (zoFRAN 4MG INJ) 4 mg Q6H PRN IVP NAUSEA/VOMITING 09/25/24 18:00 10/25/24 17:59 Pantoprazole Sodium (PROTonix 40MG INJ) 40 mg BID IVP 09/25/24 21:00 09/25/24 20:54 DC Pantoprazole Sodium 80 mg/ Sodium Chloride 100 ml @ 10 mls/hr Q10H IV 09/25/24 21:00 10/25/24 20:59 09/25/24 21:20 10 MLS/HR Diagnostics / Radiology: [COPY/PASTE HERE IF NO REPORTS PLEASE DELETE SECTION] Assessment: [ ] Plan: [ ] CARMINA TRAVIS [employer] Sep 25, 2024 23:21
[2024-09-26] VITALS (15 sets, daily range): BP systolic 96–130; BP diastolic 44–69; PULSE 63–78; RESP 15–20; TEMP 97.2–98.4; O2SAT 97–99
[2024-09-26 00:36] LABS: HEMATOCRIT 23.6 % (36-48)
[2024-09-26] MEDS: ZOSYN 3.375GM +NS 50ML IV SCH (01:59)
[2024-09-26 04:16] LABS: CREATININE 1.2 mg/dL (0.5-1.0); MAGNESIUM 1.9 mg/dL (1.80-2.40); PHOSPHORUS 3.3 mg/dL (2.5-4.9); THYROID STIMULATING HORMONE 1.05 uIU/mL (0.36-3.74)
[2024-09-26 04:31] LABS: BASOPHILS # (AUTO) 0.02 K/uL (0.00-0.20); BASOPHILS % (AUTO) 0.4 % (0.0-5.0); EOSINOPHILS # (AUTO) 0.04 K/uL (0.00-0.70); EOSINOPHILS % (AUTO) 0.9 % (0.0-8.0); HEMATOCRIT 23.8 % (36-48); IMMATURE GRANULOCYTE ABSOLUTE 0.02 K/uL (0-1); MEAN CORPUSCULAR HEMOGLOBIN 29.3 pg (27.0-33.0); MEAN CORPUSCULAR HGB CONC 33.2 g/dL (32.0-36.0); MEAN CORPUSCULAR VOLUME 88.1 fL (79-99); MONOCYTES # (AUTO) 0.3 K/uL (0.1-1.0); MONOCYTES % (AUTO) 7.2 % (3.0-13.0); NEUTROPHILS # (AUTO) 2.3 K/uL (1.8-7.7); NEUTROPHILS % (AUTO) 49.1 % (40.0-77.0); PLATELET COUNT (AUTO) 102 K/uL (130-400); RED CELL DISTRIBUTION WIDTH 15.1 % (11.0-15.5); WHITE BLOOD COUNT (AUTO) 4.7 K/uL (4.8-10.8)
--- NOTE | 2024-09-26 08:32 | NUR ---
PATIENT TRANSPORTED OFF UNIT VIA BED FOR SCHEDULED PROCEDURE Patient to have scheduled EGD with Dr. Yakov Hawley. Sandostatin Drip infusing at 25mcg/hr; Protonix drip infusing at 8mcg/hr.
[2024-09-26] MEDS ORDERED: proPOFol 10 MG/ML 20ML VIAL IV ONE (08:46)
[2024-09-26] MEDS ORDERED: LIDOCAINE PF 100MG/5ML (2%) SYRINGE 5ML ONE (08:47)
--- NOTE | 2024-09-26 10:48 | HMCIMG ---
US RENAL SONOGRAM HISTORY: Chronic renal disease COMPARISON: Ultrasound from 11/14/2014 TECHNIQUE: Renal and bladder ultrasound study was performed. FINDINGS: The right kidney measures 9 x 3.6 x 3.1 cm. The left kidney measures 10.4 x 5.2 x 4.4 cm. No evidence of hydronephrosis is seen of either kidney. Both kidneys are seen. Bladder is moderately distended. Bladder wall measures 4 mm. IMPRESSION: 1. No hydronephrosis is seen.
--- NOTE | 2024-09-26 11:32 | NUR ---
DCP: HOME Pt currently lives with her Marlo Khalil [phone]. Pt does not have insecurities with food, chcf, and/or utilities. Pt does not have DME, home health, or provider services. Pt is able to complete ADLs independently. PCP is Dr. Roberto Browne and uses [facility] for any RX needs. At [place] pt will go home and family will assist with transportation. Addendum: 09/26/24 at 1139 by NINFA WHITFIELD SS Amended: Links added.
[2024-09-26] MEDS ORDERED: COMPOUND IV REFRIGERATED 1 EACH IVSOLN MISC PRN (12:00)
--- NOTE | 2024-09-26 16:47 | PN ---
[facility] PROGRESS NOTE Date Patient Seen: Sep 26, 2024 Time of Visit: 16:47 Supervising Physician: Dr. Christian Reyna Primary Care Physician: [ Dr. Roberto Browne] Inpatient Consults: [GI-Dr. Hawley ] PROBLEM LIST: Melena-POA, on oral iron at home S/P EGD on 09/26/2024 with finding of chronic gastritis and normal duodenum Acute blood-loss anemia-POA Acute Enterocolitis per CT AP-POA LINO on CKD 3-POA Dehydration-POA Primary HTN Diabetes mellitus type 2 Chronic pain HLD Chronic anemia HX of small bowel AVM's Prior EGD revealed erythematous duodenopathy (07/2024) INTERVAL HISTORY: Patient assessed at bedside. AAOX3. Currently on room air. S/P EGD today with findings of chronic gastritis. Hemoglobin 7.9. Abdomen distended and complains of some pain. Continues on IV ABX. Will remain on liquid diet for now. Continue on protonix and IV fluids for now. Denies any nausea or vomiting. at bedside. REVIEW OF SYSTEMS: 12 point ROS reviewed with patient. Pertinent positives mentioned above. Otherwise negative. PHYSICAL EXAM: GENERAL: alert, weak, awake oriented x 3 HEENT: EOMI, Sclera non icteric, moist mucosa NECK: Supple, no JVD, trachea midline LUNGS: Clear breath sounds bilaterally. No wheezes HEART: Regular rate and rhythm. Normal S1 and S2, without murmurs ABD: Abdomen soft, nontender. Bowel sounds present EXT: No clubbing cyanosis or edema NEURO: Alert and oriented to person, follows commands Vital Signs (last 8hr) Date Time Temp Pulse Resp B/P (MAP) Pulse Ox O2 Delivery O2 Flow Rate FiO2 09/26/24 12:00 98.1 66 18 116/69 96 Room Air 21 09/26/24 09:45 97.3 74 15 100/55 96 Room Air 21 09/26/24 09:40 97.3 71 15 105/50 96 Room Air 21 09/26/24 09:35 97.3 69 15 104/51 96 Room Air 21 09/26/24 09:30 97.3 71 15 106/47 96 Room Air 21 09/26/24 09:25 97.3 70 15 103/51 97 Room Air 21 09/26/24 09:20 97.3 68 15 101/47 97 Room Air 21 09/26/24 09:15 97.3 64 15 104/49 98 Nasal Cannula 1.0 22 09/26/24 09:10 97.3 65 15 103/44 98 Nasal Cannula 3.0 28 09/26/24 09:02 Mask 10.0 09/26/24 09:02 Mask LABS: Hematology Labs: Test 09/26/24 11:45 09/26/24 03:34 09/25/24 16:01 Range/Units Hemoglobin 7.4 L 12.0-16.0 g/dL Hematocrit 24.0 L 36-48 % White Blood Count 4.7 #L 4.8-10.8 K/uL Red Blood Count 2.70 L 4.00-5.50 MIL/uL Mean Corpuscular Volume 88.1 79-99 fL Mean Corpuscular Hemoglobin 29.3 27.0-33.0 pg Mean Corpuscular Hemoglobin Concent 33.2 32.0-36.0 g/dL Red Cell Distribution Width 15.1 11.0-15.5 % Platelet Count 102 #L 130-400 K/uL Mean Platelet Volume 12.2 H 7.5-10.5 fL Immature Granulocyte % (Auto) 0.4 0-1 % Neutrophils (%) (Auto) 49.1 40.0-77.0 % Lymphocytes (%) (Auto) 42.0 21.0-51.0 % Monocytes (%) (Auto) 7.2 3.0-13.0 % Eosinophils (%) (Auto) 0.9 0.0-8.0 % Basophils (%) (Auto) 0.4 0.0-5.0 % Neutrophils # (Auto) 2.3 1.8-7.7 K/uL Lymphocytes # (Auto) 2.0 1.0-4.8 K/uL Monocytes # (Auto) 0.3 0.1-1.0 K/uL Eosinophils # (Auto) 0.04 0.00-0.70 K/uL Basophils # (Auto) 0.02 0.00-0.20 K/uL Absolute Immature Granulocyte (auto 0.02 0-1 K/uL Nucleated Red Blood Cells 0.0 0.0-0.19 % Reticulocyte Count (auto) 2.98296 0.42-2.23 % Immature Reticulocyte Fraction 16.70 H 0.18-0.48 % Chemistry Labs: Test 09/26/24 15:54 09/26/24 03:34 09/25/24 16:03 09/25/24 16:01 Range/Units Whole Blood Glucose 168 H 70-110 MG/DL Sodium Level 144 136-145 mmol/L Potassium Level 5.0 3.5-5.1 mmol/L Chloride Level 112 H 101-111 mmol/L Carbon Dioxide Level 27 21-32 mmol/L Blood Urea Nitrogen 65 H 7-18 mg/dL Creatinine 1.2 H 0.5-1.0 mg/dL Glomerular Filtration Rate Calc 48 >90 mL/min Random Glucose 158 H 70-105 mg/dL Total Calcium 8.5 8.5-10.1 mg/dL Phosphorus Level 3.3 2.5-4.9 mg/dL Magnesium Level 1.90 1.80-2.40 mg/dL Thyroid Stimulating Hormone (TSH) 1.05 0.36-3.74 uIU/mL Troponin I High Sensitivity 10 4-50 ng/L Lipase 35 16-77 U/L Iron Level 248 H 50-170 mcg/dL Total Iron Binding Capacity 303 250-450 mcg/dL Percent Iron Saturation 81.8 H 22-44 % Ferritin 55 15-150 ng/mL Coagulation Labs: Test 09/25/24 21:05 Range/Units Prothrombin Time 11.4 9.6-11.6 SEC Prothromb Time International Ratio 1.08 0.85-1.15 Activated Partial Thromboplast Time 23.2 L 26.3-35.5 SEC DIAGNOSTICS / RADIOLOGY RESULTS: NA PLAN NEURO: Minimize central acting medications as possible. Maintain fall precautions, adequate lighting during the day PULMONARY: Supplemental 02 as needed. Maintain aspiration precautions at all times CARDIOVASCULAR: Follow hemodynamics. Vital signs per facility protocol GI & NUTRITION: Continue with nutritional support. Continue stool softeners and laxatives as needed. KIDNEYS & ELECTROLYTES: Strict monitoring of intake, output and overall fluid balance. Avoid nephrotoxic medications to the extent possible. Medications to be dosed according to renal function. Monitor electrolytes and replace as needed ENDOCRINE: Maintain blood glucose between 100-180 at all times. Hypoglycemia protocol in place INFECTIOUS DISEASE: Trend temperature, WBC and procalcitonin level Follow cultures, deescalate antibiotics as soon as possible. Panculture if new onset fever ONCOLOGY/HEMATOLOGY/COAGULATION: Monitor for s/s of bleeding Monitor hemoglobin, coagulation studies as needed SKIN: Pressure ulcer prevention per facility protocol Specialty mattress ORTHO/REHAB: Continue PT/OT Prophylaxis: Continue GI and DVT prophylaxis: No anticoagulant due to GI bleed Code Status: Full Resuscitation Disposition: JOSEFINA HOLT NP Sep 26, 2024 16:47
[2024-09-27 03:45] VITALS: BP 103/53; PULSE 64; RESP 20; TEMP 98
[2024-09-27 04:52] LABS: BASOPHILS # (AUTO) 0.02 K/uL (0.00-0.20); BASOPHILS % (AUTO) 0.6 % (0.0-5.0); EOSINOPHILS # (AUTO) 0.09 K/uL (0.00-0.70); EOSINOPHILS % (AUTO) 2.8 % (0.0-8.0); HEMATOCRIT 21.4 % (36-48); IMMATURE GRANULOCYTE ABSOLUTE 0.04 K/uL (0-1); LYMPHOCYTES # (AUTO) 1.3 K/uL (1.0-4.8); LYMPHOCYTES % (AUTO) 41.5 % (21.0-51.0); MEAN CORPUSCULAR HEMOGLOBIN 29.1 pg (27.0-33.0); MEAN CORPUSCULAR HGB CONC 32.2 g/dL (32.0-36.0); MEAN CORPUSCULAR VOLUME 90.3 fL (79-99); MONOCYTES # (AUTO) 0.3 K/uL (0.1-1.0); MONOCYTES % (AUTO) 8.5 % (3.0-13.0); NEUTROPHILS # (AUTO) 1.4 K/uL (1.8-7.7); NEUTROPHILS % (AUTO) 45.3 % (40.0-77.0); PLATELET COUNT (AUTO) 77 K/uL (130-400); RED BLOOD CELL COUNT(AUTO) 2.37 MIL/uL (4.00-5.50); RED CELL DISTRIBUTION WIDTH 14.9 % (11.0-15.5); WHITE BLOOD COUNT (AUTO) 3.2 K/uL (4.8-10.8)
[2024-09-27 05:10] LABS: ALBUMIN 2.5 g/dL (3.5-5.0); BILIRUBIN,TOTAL 0.3 mg/dL (0.2-1.0); CREATININE 1.2 mg/dL (0.5-1.0); MAGNESIUM 1.8 mg/dL (1.80-2.40); POTASSIUM 4.2 mmol/L (3.5-5.1); TOTAL PROTEIN, SERUM 5.1 g/dL (6.0-8.3)
--- NOTE | 2024-09-27 06:00 | NUR ---
ORDERS GIVEN FOR 1 UNIT PRBCS FOR HGB 6.9 GOT CONSENT PT VERBALIZED UNDERSTANDING RISKS ANSD HAZARDS
--- NOTE | 2024-09-27 07:25 | NUR ---
ONE UNIT PRBCS STARTED FOR HGB 6.9 MOSHE HARTMAN WITNESSED REFER TO TRANSFUSION RECORD
[2024-09-27 08:00] VITALS: BP 116/37; PULSE 66; RESP 16; TEMP 98.3; O2SAT 98
--- NOTE | 2024-09-27 09:42 | PN ---
GASTROENTEROLOGY PROGRESS NOTE Date of Visit: Sep 27, 2024 Time of Visit: 09:42 Events / Notes: No acute events overnight. She had negative EGD. She had [facility] workup in July with negative findings. Review of Systems: CONSTITUTIONAL: No malaise or change in sensation of wellbeing. ENMT: No rhinorrhea, otorrhea, sinus pain, ear ache. CARDIOVASCULAR: No angina, palpitations, orthopnea or paroxysmal dyspnea. RESPIRATORY: No SOB. GASTROINTESTINAL: No abdominal pain, nausea, vomiting, diarrhea, hematemesis, melena or change in the patient's habitual bowel movements consistency/number. GENITOURINARY: No dysuria, hematuria or change in bladder continence. MUSCULOSKELETAL: No new muscle pain or decrease in muscular strength. No new joint swelling, redness or tenderness. SKIN: No new rash. Physical Exam: GEN: Awake, alert, oriented in person, time and place, and in no acute distress. HEENT: No sinus tenderness. Tympanic membranes were not examined. No rhinorrhea. Oral pharyngeal mucosa is pink, moist and within normal limits. Neck is supple with no cervical lymphadenopathy, thyromegaly or JVD. CHEST: Inspection, palpation and percussion of the chest were unremarkable. Lung auscultation revealed normal breath sounds bilaterally. CARDIAC: PMI is within normal limits. Heart sounds are regular. Normal S1, S2. No gallop or murmur. ABD: Soft, non-tender and not distended. No peritoneal signs on palpation. No organomegaly. Normal bowel sounds. EXT: No cyanosis or clubbing. No edema. SKIN: Intact. No rashes. JOINTS: No evidence of synovitis or acute arthritis. NEURO: Alert and oriented to name, place and person. Cranial nerve examination is unremarkable. No focal motor deficits. Normal speech. Gait is normal. Strength is normal. Vital Signs (last 8hr) Date Time Temp Pulse Resp B/P (MAP) Pulse Ox O2 Delivery O2 Flow Rate FiO2 09/27/24 08:00 98.2 66 16 116/37 99 Room Air 21 09/27/24 03:45 98.1 64 20 103/53 98 Room Air Laboratory: [ ] Laboratory: Test 09/27/24 05:39 09/27/24 04:19 09/26/24 03:34 09/25/24 21:05 Range/Units Whole Blood Glucose 136 H 70-110 MG/DL White Blood Count 3.2 L 4.8-10.8 K/uL Red Blood Count 2.37 L 4.00-5.50 MIL/uL Hemoglobin 6.9 *L 12.0-16.0 g/dL Hematocrit 21.4 L 36-48 % Mean Corpuscular Volume 90.3 79-99 fL Mean Corpuscular Hemoglobin 29.1 27.0-33.0 pg Mean Corpuscular Hemoglobin Concent 32.2 32.0-36.0 g/dL Red Cell Distribution Width 14.9 11.0-15.5 % Platelet Count 77 L 130-400 K/uL Mean Platelet Volume 11.7 H 7.5-10.5 fL Immature Granulocyte % (Auto) 1.3 H 0-1 % Neutrophils (%) (Auto) 45.3 40.0-77.0 % Lymphocytes (%) (Auto) 41.5 21.0-51.0 % Monocytes (%) (Auto) 8.5 3.0-13.0 % Eosinophils (%) (Auto) 2.8 0.0-8.0 % Basophils (%) (Auto) 0.6 0.0-5.0 % Neutrophils # (Auto) 1.4 L 1.8-7.7 K/uL Lymphocytes # (Auto) 1.3 1.0-4.8 K/uL Monocytes # (Auto) 0.3 0.1-1.0 K/uL Eosinophils # (Auto) 0.09 0.00-0.70 K/uL Basophils # (Auto) 0.02 0.00-0.20 K/uL Absolute Immature Granulocyte (auto 0.04 0-1 K/uL Nucleated Red Blood Cells 0.0 0.0-0.19 % Sodium Level 142 136-145 mmol/L Potassium Level 4.2 3.5-5.1 mmol/L Chloride Level 109 101-111 mmol/L Carbon Dioxide Level 27 21-32 mmol/L Blood Urea Nitrogen 30 H 7-18 mg/dL Creatinine 1.2 H 0.5-1.0 mg/dL Glomerular Filtration Rate Calc 48 >90 mL/min Random Glucose 138 H 70-105 mg/dL Total Calcium 8.0 L 8.5-10.1 mg/dL Magnesium Level 1.80 1.80-2.40 mg/dL Total Bilirubin 0.3 0.2-1.0 mg/dL Aspartate Amino Transf (AST/SGOT) 26 10-37 U/L Alanine Aminotransferase (ALT/SGPT) 30 12-78 U/L Alkaline Phosphatase 54 50-136 U/L Total Protein 5.1 L 6.0-8.3 g/dL Albumin 2.5 L 3.5-5.0 g/dL Phosphorus Level 3.3 2.5-4.9 mg/dL Thyroid Stimulating Hormone (TSH) 1.05 0.36-3.74 uIU/mL Prothrombin Time 11.4 9.6-11.6 SEC Prothromb Time International Ratio 1.08 0.85-1.15 Activated Partial Thromboplast Time 23.2 L 26.3-35.5 SEC Test 09/25/24 17:17 09/25/24 16:03 09/25/24 16:01 Range/Units Urine Color COLORLESS YELLOW Urine Appearance CLEAR CLEAR Urine pH 5.0 5.0-8.0 Urine Specific [place] 1.018 1.001-1.031 Urine Protein NEGATIVE NEGATIVE mg/dL Urine Glucose (UA) NEGATIVE NEGATIVE mg/dL Urine Ketones NEGATIVE NEGATIVE mg/dL Urine Occult Blood MODERATE H NEGATIVE Urine Nitrate NEGATIVE NEGATIVE Urine Bilirubin NEGATIVE NEGATIVE mg/dL Urine Urobilinogen 0.2 0.2-1.0 mg/dL Urine Leukocyte Esterase 75 H NEGATIVE [place]/uL Urine RBC None 0-1 /HPF Urine WBC 2-5 H 0-1 /HPF Urine Squamous Epithelial Cells RARE 0-2 /HPF Urine Bacteria None None Seen /HPF Stool Occult Blood POSITIVE H NEGATIVE Troponin I High Sensitivity 10 4-50 ng/L Lipase 35 16-77 U/L Reticulocyte Count (auto) 2.47176 0.42-2.23 % Immature Reticulocyte Fraction 16.70 H 0.18-0.48 % Iron Level 248 H 50-170 mcg/dL Total Iron Binding Capacity 303 250-450 mcg/dL Percent Iron Saturation 81.8 H 22-44 % Ferritin 55 15-150 ng/mL Current Medications Medications (Trade) Dose Ordered Sig/Adam Route PRN Reason Start Time Stop Time Status Last Admin Dose Admin Acetaminophen (TYLenol 325MG TAB) 650 mg Q6H PRN PO FEVER/MILD PAIN LEVEL 1-3 09/25/24 18:00 10/25/24 17:59 Clonidine HCl (CATApres 0.1 mg TAB) 0.1 mg Q6H PRN PO IF SBP GREATER THAN 160 09/25/24 18:00 10/25/24 17:59 Insulin Human Regular (humuLIN R 100 UNIT/ML 3ML) INSULIN SLIDING SCAL... ACHS SQ 09/25/24 21:00 10/25/24 20:59 Labetalol HCl (TRANdate 20MG SYG) 10 mg Q2H PRN IV SBP GREATER THAN 180 09/25/24 18:00 10/25/24 17:59 Lactated Ringer's 1,000 ml @ 125 mls/hr Q8H IV 09/25/24 18:00 10/25/24 17:59 09/26/24 23:25 125 MLS/HR Lactulose (Constulose 20gm/ 30ml Udcup) 20 gm Q6H PRN PO CONSTIPATION 09/25/24 18:00 10/25/24 17:59 Octreotide Acetate 1250 mcg/ Sodium Chloride 250 ml @ 0 mls/hr PROTOCOL IV 09/25/24 21:00 09/26/24 17:53 DC 09/25/24 21:21 5 MLS/HR Ondansetron HCl (zoFRAN 4MG INJ) 4 mg Q6H PRN IVP NAUSEA/VOMITING 09/25/24 18:00 10/25/24 17:59 Pantoprazole Sodium (PROTonix 40MG INJ) 40 mg BID IVP 09/25/24 21:00 09/25/24 20:54 DC Pantoprazole Sodium (PROTonix 40MG TAB) 40 mg DAILY PO 09/27/24 09:00 10/27/24 08:59 Pantoprazole Sodium 80 mg/ Sodium Chloride 100 ml @ 10 mls/hr Q10H IV 09/25/24 21:00 09/26/24 17:53 DC 09/26/24 05:39 10 MLS/HR Piperacillin Sod/ Tazobactam Sod (Zosyn 3.375gm+NS 50ml) 3.375 gm Q8H IV 09/26/24 02:00 10/06/24 01:59 09/27/24 01:55 3.375 GM Diagnostics / Radiology: [COPY/PASTE HERE IF NO REPORTS PLEASE DELETE SECTION] Assessment: Anemia of chronic disease[ ] Plan: Hematology consult CARMINA TRAVIS [facility] Sep 27, 2024 09:42
[2024-09-27] MEDS: PANTOPrazole 40 MG TAB DR PO SCH (10:36)
--- NOTE | 2024-09-27 11:05 | NUR ---
note transfusion finished at this time, no signs or symptoms of reaction, pt aaox4, afebrile
[2024-09-27 12:00] VITALS: BP 133/47; PULSE 61; RESP 16; TEMP 98.1
--- NOTE | 2024-09-27 14:20 | PN ---
[facility] PROGRESS NOTE Date Patient Seen: Sep 27, 2024 Time of Visit: 14:20 Supervising Physician: Dr. Christian Reyna Primary Care Physician: [ Dr. Roberto Browne] Inpatient Consults: [GI-Dr. Hawley ], (Oncologist) PROBLEM LIST: Melena-POA, on oral iron at home S/P EGD on 09/26/2024 with finding of chronic gastritis and normal duodenum Acute blood-loss anemia, POA, requiring PRBC on 09/27/[address] AP-POA LINO on CKD 3-POA Dehydration-POA Primary HTN Diabetes mellitus type 2 Chronic pain HLD Chronic anemia HX of small bowel AVM's Prior EGD revealed erythematous duodenopathy (07/2024) INTERVAL HISTORY: Patient assessed at bedside. AAOX3. Currently on room air. S/P EGD yesterday with findings of chronic gastritis. Hemoglobin 6.9, pending one PRBC to be transfused. Abdomen distention has resolved.. Continues on IV ABX. Will remain on liquid diet for now. Continue on Protonix and IV fluids for now. 1:1 done with BONI Aquino with GI who ordered a bleeding scan. Dr. Reynolds, patient oncologist consulted as well for recurrent anemia, patient states she is allergic to IV iron. Denies any nausea or vomiting. at bedside. REVIEW OF SYSTEMS: 12 point ROS reviewed with patient. Pertinent positives mentioned above. Otherwise negative. PHYSICAL EXAM: GENERAL: alert, weak, awake oriented x 3 HEENT: EOMI, Sclera non icteric, moist mucosa NECK: Supple, no JVD, trachea midline LUNGS: Clear breath sounds bilaterally. No wheezes HEART: Regular rate and rhythm. Normal S1 and S2, without murmurs ABD: Abdomen soft, nontender. Bowel sounds present EXT: No clubbing cyanosis or edema NEURO: Alert and oriented to person, follows commands Vital Signs (last 8hr) Date Time Temp Pulse Resp B/P (MAP) Pulse Ox O2 Delivery O2 Flow Rate FiO2 09/27/24 12:00 98.1 61 16 133/47 99 Room Air 21 09/27/24 08:00 98.2 66 16 116/37 99 Room Air 21 LABS: Hematology Labs: Test 09/27/24 04:19 09/25/24 16:01 Range/Units White Blood Count 3.2 L 4.8-10.8 K/uL Red Blood Count 2.37 L 4.00-5.50 MIL/uL Hemoglobin 6.9 *L 12.0-16.0 g/dL Hematocrit 21.4 L 36-48 % Mean Corpuscular Volume 90.3 79-99 fL Mean Corpuscular Hemoglobin 29.1 27.0-33.0 pg Mean Corpuscular Hemoglobin Concent 32.2 32.0-36.0 g/dL Red Cell Distribution Width 14.9 11.0-15.5 % Platelet Count 77 L 130-400 K/uL Mean Platelet Volume 11.7 H 7.5-10.5 fL Immature Granulocyte % (Auto) 1.3 H 0-1 % Neutrophils (%) (Auto) 45.3 40.0-77.0 % Lymphocytes (%) (Auto) 41.5 21.0-51.0 % Monocytes (%) (Auto) 8.5 3.0-13.0 % Eosinophils (%) (Auto) 2.8 0.0-8.0 % Basophils (%) (Auto) 0.6 0.0-5.0 % Neutrophils # (Auto) 1.4 L 1.8-7.7 K/uL Lymphocytes # (Auto) 1.3 1.0-4.8 K/uL Monocytes # (Auto) 0.3 0.1-1.0 K/uL Eosinophils # (Auto) 0.09 0.00-0.70 K/uL Basophils # (Auto) 0.02 0.00-0.20 K/uL Absolute Immature Granulocyte (auto 0.04 0-1 K/uL Nucleated Red Blood Cells 0.0 0.0-0.19 % Reticulocyte Count (auto) 2.85437 0.42-2.23 % Immature Reticulocyte Fraction 16.70 H 0.18-0.48 % Chemistry Labs: Test 09/27/24 10:47 09/27/24 04:19 09/26/24 03:34 09/25/24 16:03 Range/Units Whole Blood Glucose 166 H 70-110 MG/DL Sodium Level 142 136-145 mmol/L Potassium Level 4.2 3.5-5.1 mmol/L Chloride Level 109 101-111 mmol/L Carbon Dioxide Level 27 21-32 mmol/L Blood Urea Nitrogen 30 H 7-18 mg/dL Creatinine 1.2 H 0.5-1.0 mg/dL Glomerular Filtration Rate Calc 48 >90 mL/min Random Glucose 138 H 70-105 mg/dL Total Calcium 8.0 L 8.5-10.1 mg/dL Magnesium Level 1.80 1.80-2.40 mg/dL Total Bilirubin 0.3 0.2-1.0 mg/dL Aspartate Amino Transf (AST/SGOT) 26 10-37 U/L Alanine Aminotransferase (ALT/SGPT) 30 12-78 U/L Alkaline Phosphatase 54 50-136 U/L Total Protein 5.1 L 6.0-8.3 g/dL Albumin 2.5 L 3.5-5.0 g/dL Phosphorus Level 3.3 2.5-4.9 mg/dL Thyroid Stimulating Hormone (TSH) 1.05 0.36-3.74 uIU/mL Troponin I High Sensitivity 10 4-50 ng/L Lipase 35 16-77 U/L Test 09/25/24 16:01 Range/Units Iron Level 248 H 50-170 mcg/dL Total Iron Binding Capacity 303 250-450 mcg/dL Percent Iron Saturation 81.8 H 22-44 % Ferritin 55 15-150 ng/mL Coagulation Labs: Test 09/25/24 21:05 Range/Units Prothrombin Time 11.4 9.6-11.6 SEC Prothromb Time International Ratio 1.08 0.85-1.15 Activated Partial Thromboplast Time 23.2 L 26.3-35.5 SEC DIAGNOSTICS / RADIOLOGY RESULTS: NA PLAN NEURO: Minimize central acting medications as possible. Maintain fall precautions, adequate lighting during the day PULMONARY: Supplemental 02 as needed. Maintain aspiration precautions at all times CARDIOVASCULAR: Follow hemodynamics. Vital signs per facility protocol GI & NUTRITION: Continue with nutritional support. Continue stool softeners and laxatives as needed. follow GI recommendations KIDNEYS & ELECTROLYTES: Strict monitoring of intake, output and overall fluid balance. Avoid nephrotoxic medications to the extent possible. Medications to be dosed according to renal function. Monitor electrolytes and replace as needed ENDOCRINE: Maintain blood glucose between 100-180 at all times. Hypoglycemia protocol in place INFECTIOUS DISEASE: Trend temperature, WBC and procalcitonin level Follow cultures, deescalate antibiotics as soon as possible. Panculture if new onset fever ONCOLOGY/HEMATOLOGY/COAGULATION: Monitor for s/s of bleeding Monitor hemoglobin, coagulation studies as needed SKIN: Pressure ulcer prevention per facility protocol Specialty mattress ORTHO/REHAB: Continue PT/OT Prophylaxis: Continue GI and DVT prophylaxis: No anticoagulant due to GI bleed Code Status: Full Resuscitation Disposition: JOSEFINA HOLT NP Sep 27, 2024 14:20
[2024-09-27 16:00] VITALS: BP 111/49; PULSE 61; RESP 16; TEMP 98.2
[2024-09-27 20:00] VITALS: BP 149/49; PULSE 63; RESP 18; TEMP 98
[2024-09-27 20:32] LABS: HEMATOCRIT 29.6 % (36-48)
--- NOTE | 2024-09-27 22:13 | HMCIMG ---
NM GI BLOOD LOSS IMAG REASON: melena. COMPARISON: None TECHNIQUE: GI bleeding scan was performed with 27 mCi of technetium pertechnetate tagged RBCs through intravenous route. FINDINGS: No scintigraphic evidence of acute GI bleed is seen. IMPRESSION: No scintigraphic evidence of active GI bleed is seen.
[2024-09-27 23:32] VITALS: BP 123/41; PULSE 61; RESP 20; TEMP 98
[2024-09-28 03:50] VITALS: BP 140/50; PULSE 60; RESP 16; TEMP 98.1
[2024-09-28 04:46] LABS: HEMATOCRIT 26.2 % (36-48); MEAN CORPUSCULAR HEMOGLOBIN 29.2 pg (27.0-33.0); MEAN CORPUSCULAR HGB CONC 33.2 g/dL (32.0-36.0); MEAN CORPUSCULAR VOLUME 87.9 fL (79-99); PLATELET COUNT (AUTO) 65 K/uL (130-400); RED BLOOD CELL COUNT(AUTO) 2.98 MIL/uL (4.00-5.50); RED CELL DISTRIBUTION WIDTH 15.6 % (11.0-15.5); WHITE BLOOD COUNT (AUTO) 2.9 K/uL (4.8-10.8)
[2024-09-28 05:08] LABS: ALBUMIN 2.7 g/dL (3.5-5.0); BILIRUBIN,TOTAL 0.4 mg/dL (0.2-1.0); MAGNESIUM 1.7 mg/dL (1.80-2.40); POTASSIUM 4.1 mmol/L (3.5-5.1); TOTAL PROTEIN, SERUM 5.2 g/dL (6.0-8.3)
[2024-09-28 05:17] LABS: EOSINOPHILS % (MANUAL) 3 % (1-6); LYMPHOCYTES % (MANUAL) 34 % (22-44); MAN.DIFF COMMENT-IMPRESSION MANUAL DIFFERENTIAL; MONOCYTES % (MANUAL) 6 % (2-9); PLATELET MORPHOLOGY COMMENT DECREASED; SEGMENTED NEUTROPHILS % 57 % (40-70); TOTAL CELLS COUNTED 100
--- NOTE | 2024-09-28 07:35 | PN ---
GASTROENTEROLOGY PROGRESS NOTE Date of Visit: Sep 28, 2024 Time of Visit: 07:35 Events / Notes: No acute events overnight. She had negative EGD. She had BAY[facility] workup in July with negative findings. Review of Systems: CONSTITUTIONAL: No malaise or change in sensation of wellbeing. ENMT: No rhinorrhea, otorrhea, sinus pain, ear ache. CARDIOVASCULAR: No angina, palpitations, orthopnea or paroxysmal dyspnea. RESPIRATORY: No SOB. GASTROINTESTINAL: No abdominal pain, nausea, vomiting, diarrhea, hematemesis, melena or change in the patient's habitual bowel movements consistency/number. GENITOURINARY: No dysuria, hematuria or change in bladder continence. MUSCULOSKELETAL: No new muscle pain or decrease in muscular strength. No new joint swelling, redness or tenderness. SKIN: No new rash. Physical Exam: GEN: Awake, alert, oriented in person, time and place, and in no acute distress. HEENT: No sinus tenderness. Tympanic membranes were not examined. No rhinorrhea. Oral pharyngeal mucosa is pink, moist and within normal limits. Neck is supple with no cervical lymphadenopathy, thyromegaly or JVD. CHEST: Inspection, palpation and percussion of the chest were unremarkable. Lung auscultation revealed normal breath sounds bilaterally. CARDIAC: PMI is within normal limits. Heart sounds are regular. Normal S1, S2. No gallop or murmur. ABD: Soft, non-tender and not distended. No peritoneal signs on palpation. No organomegaly. Normal bowel sounds. EXT: No cyanosis or clubbing. No edema. SKIN: Intact. No rashes. JOINTS: No evidence of synovitis or acute arthritis. NEURO: Alert and oriented to name, place and person. Cranial nerve examination is unremarkable. No focal motor deficits. Normal speech. Gait is normal. Strength is normal. Vital Signs (last 8hr) Date Time Temp Pulse Resp B/P (MAP) Pulse Ox O2 Delivery O2 Flow Rate FiO2 09/28/24 03:50 98.1 60 16 140/50 100 Room Air Laboratory: [ ] Laboratory: Test 09/28/24 05:24 09/28/24 03:56 09/27/24 04:19 Range/Units Whole Blood Glucose 115 H 70-110 MG/DL White Blood Count 2.9 L 4.8-10.8 K/uL Red Blood Count 2.98 #L 4.00-5.50 MIL/uL Hemoglobin 8.7 L 12.0-16.0 g/dL Hematocrit 26.2 L 36-48 % Mean Corpuscular Volume 87.9 79-99 fL Mean Corpuscular Hemoglobin 29.2 27.0-33.0 pg Mean Corpuscular Hemoglobin Concent 33.2 32.0-36.0 g/dL Red Cell Distribution Width 15.6 H 11.0-15.5 % Platelet Count 65 L 130-400 K/uL Mean Platelet Volume 10.8 H 7.5-10.5 fL Segmented Neutrophils % 57 40-70 % Lymphocytes % (Manual) 34 22-44 % Monocytes % (Manual) 6 2-9 % Eosinophils % (Manual) 3 1-6 % Nucleated Red Blood Cells 0.0 0.0-0.19 % Differential Comment MANUAL DIFFERENTIAL White Cell Morphology Comment Platelet Morphology Comment DECREASED Red Blood Cell Morphology See comments Sodium Level 143 136-145 mmol/L Potassium Level 4.1 3.5-5.1 mmol/L Chloride Level 109 101-111 mmol/L Carbon Dioxide Level 30 21-32 mmol/L Blood Urea Nitrogen 16 7-18 mg/dL Creatinine 1.0 0.5-1.0 mg/dL Glomerular Filtration Rate Calc 60 >90 mL/min Random Glucose 129 H 70-105 mg/dL Total Calcium 8.4 L 8.5-10.1 mg/dL Magnesium Level 1.70 L 1.80-2.40 mg/dL Total Bilirubin 0.4 # 0.2-1.0 mg/dL Aspartate Amino Transf (AST/SGOT) 40 H 10-37 U/L Alanine Aminotransferase (ALT/SGPT) 39 # 12-78 U/L Alkaline Phosphatase 58 50-136 U/L Total Protein 5.2 L 6.0-8.3 g/dL Albumin 2.7 L 3.5-5.0 g/dL Immature Granulocyte % (Auto) 1.3 H 0-1 % Neutrophils (%) (Auto) 45.3 40.0-77.0 % Lymphocytes (%) (Auto) 41.5 21.0-51.0 % Monocytes (%) (Auto) 8.5 3.0-13.0 % Eosinophils (%) (Auto) 2.8 0.0-8.0 % Basophils (%) (Auto) 0.6 0.0-5.0 % Neutrophils # (Auto) 1.4 L 1.8-7.7 K/uL Lymphocytes # (Auto) 1.3 1.0-4.8 K/uL Monocytes # (Auto) 0.3 0.1-1.0 K/uL Eosinophils # (Auto) 0.09 0.00-0.70 K/uL Basophils # (Auto) 0.02 0.00-0.20 K/uL Absolute Immature Granulocyte (auto 0.04 0-1 K/uL Current Medications Medications (Trade) Dose Ordered Sig/Adam Route PRN Reason Start Time Stop Time Status Last Admin Dose Admin Acetaminophen (TYLenol 325MG TAB) 650 mg Q6H PRN PO FEVER/MILD PAIN LEVEL 1-3 09/25/24 18:00 10/25/24 17:59 Clonidine HCl (CATApres 0.1 mg TAB) 0.1 mg Q6H PRN PO IF SBP GREATER THAN 160 09/25/24 18:00 10/25/24 17:59 Insulin Human Regular (humuLIN R 100 UNIT/ML 3ML) INSULIN SLIDING SCAL... ACHS SQ 09/25/24 21:00 10/25/24 20:59 Labetalol HCl (TRANdate 20MG SYG) 10 mg Q2H PRN IV SBP GREATER THAN 180 09/25/24 18:00 10/25/24 17:59 Lactated Ringer's 1,000 ml @ 125 mls/hr Q8H IV 09/25/24 18:00 10/25/24 17:59 09/28/24 02:10 125 MLS/HR Lactulose (Constulose 20gm/ 30ml Udcup) 20 gm Q6H PRN PO CONSTIPATION 09/25/24 18:00 10/25/24 17:59 Octreotide Acetate 1250 mcg/ Sodium Chloride 250 ml @ 0 mls/hr PROTOCOL IV 09/25/24 21:00 09/26/24 17:53 DC 09/25/24 21:21 5 MLS/HR Ondansetron HCl (zoFRAN 4MG INJ) 4 mg Q6H PRN IVP NAUSEA/VOMITING 09/25/24 18:00 10/25/24 17:59 Pantoprazole Sodium (PROTonix 40MG INJ) 40 mg BID IVP 09/25/24 21:00 09/25/24 20:54 DC Pantoprazole Sodium (PROTonix 40MG TAB) 40 mg DAILY PO 09/27/24 09:00 10/27/24 08:59 09/27/24 10:36 40 MG Pantoprazole Sodium 80 mg/ Sodium Chloride 100 ml @ 10 mls/hr Q10H IV 09/25/24 21:00 09/26/24 17:53 DC 09/26/24 05:39 10 MLS/HR Piperacillin Sod/ Tazobactam Sod (Zosyn 3.375gm+NS 50ml) 3.375 gm Q8H IV 09/26/24 02:00 10/06/24 01:59 09/28/24 02:11 3.375 GM Diagnostics / Radiology: [COPY/PASTE HERE IF NO REPORTS PLEASE DELETE SECTION] Assessment: Anemia of chronic disease[ ] Plan: Hematology consult CARMINA TRAVIS [facility] Sep 28, 2024 07:35
[2024-09-28 08:00] VITALS: BP 120/57; PULSE 53; RESP 15; TEMP 98.3; O2SAT 97
--- NOTE | 2024-09-28 08:45 | CONS ---
HISTORY OF PRESENT ILLNESS: The patient was admitted with evidence of GI bleeding and severe anemia. EGD revealed evidence of gastritis. The patient was transfused with PRBC. She is feeling better. At this point, she is feeling better. She is also on IV antibiotics due to gastroenteritis and UTI. ALLERGIES: SHE EXPRESSED HAVING ALLERGIC REACTION TO IV IRON. PHYSICAL EXAMINATION: VITAL SIGNS: Stable, afebrile. GENERAL: The patient is alert, in no acute distress. HEART: Regular and rhythmic. LUNGS: With diminished breathing sounds on both bases. No crackles. ABDOMEN: Soft, no tenderness. No organomegaly. EXTREMITIES: No pitting edema, no calf tenderness. LABORATORY DATA: Reviewed. ASSESSMENT: * Severe iron deficiency anemia. * GI bleed. * Enterocolitis. PLAN: The patient remains stable after transfusion. No evidence of any active bleeding at this point. We will follow the bleeding scan. I recommend to have IV iron. I will premedicate with Solu-Medrol and Benadryl, and monitor closely. Continue to monitor with lab work. TID: [id number] RECEIPT: [id number]
[2024-09-28] MEDS: Solu-medROL 40MG VIAL IVP ONE (09:38)
[2024-09-28] MEDS: DiphenhydrAMINE HCL 50 MG/ML VIAL IV ONE (09:39)
[2024-09-28] MEDS: IRON sUCROse COMPLEX 300 MG in 0.9% NACL 250ML 250 ML IV ONE (10:35)
[2024-09-28 12:00] VITALS: BP 123/86; PULSE 55; RESP 15; TEMP 97.7
--- NOTE | 2024-09-28 15:23 | PN ---
[facility] PROGRESS NOTE Date Patient Seen: Sep 28, 2024 Time of Visit: 15:23 Supervising Physician: Dr. Christian Reyna Primary Care Physician: [ Dr. Roberto Browne] Inpatient Consults: [GI-Dr. Hawley ], (Oncologist) PROBLEM LIST: Melena-POA, on oral iron at home S/P EGD on 09/26/2024 with finding of chronic gastritis and normal duodenum Acute blood loss anemia, POA, requiring PRBC on 09/27/[address] AP, POA LINO on CKD 3, POA Dehydration, POA Primary HTN Diabetes mellitus type 2 Chronic pain Hyperlipidemia Chronic anemia HX of small bowel AVM's Prior EGD revealed erythematous duodenopathy (07/2024) INTERVAL HISTORY: Patient assessed at bedside. AAOX3. Currently on room air. Hemoglobin increased to 8.7 after PRBC transfusion yesterday. No s/s of bleeding. Oncology ordered IV iron but premedication with solu-medrol and Benadryl. Will advance diet to soft. Bleeding scan done yesterday is negative. 1:[address] Reynolds, plan is for outpatient bone marrow biopsy Denies any nausea or vomiting. at bedside. Anticipate discharge in AM if stable. REVIEW OF SYSTEMS: 12 point ROS reviewed with patient. Pertinent positives mentioned above. Otherwi se negative. PHYSICAL EXAM: GENERAL: alert, weak, awake oriented x 3 HEENT: EOMI, Sclera non icteric, moist mucosa NECK: Supple, no JVD, trachea midline LUNGS: Clear breath sounds bilaterally. No wheezes HEART: Regular rate and rhythm. Normal S1 and S2, without murmurs ABD: Abdomen soft, nontender. Bowel sounds present EXT: No clubbing cyanosis or edema NEURO: Alert and oriented to person, follows commands Vital Signs (last 8hr) Date Time Temp Pulse Resp B/P (MAP) Pulse Ox O2 Delivery O2 Flow Rate FiO2 09/28/24 12:00 97.7 55 15 123/86 97 Room Air 09/28/24 08:00 98.2 53 15 120/57 97 Room Air LABS: Hematology Labs: Test 09/28/24 03:56 09/27/24 04:19 Range/Units White Blood Count 2.9 L 4.8-10.8 K/uL Red Blood Count 2.98 #L 4.00-5.50 MIL/uL Hemoglobin 8.7 L 12.0-16.0 g/dL Hematocrit 26.2 L 36-48 % Mean Corpuscular Volume 87.9 79-99 fL Mean Corpuscular Hemoglobin 29.2 27.0-33.0 pg Mean Corpuscular Hemoglobin Concent 33.2 32.0-36.0 g/dL Red Cell Distribution Width 15.6 H 11.0-15.5 % Platelet Count 65 L 130-400 K/uL Mean Platelet Volume 10.8 H 7.5-10.5 fL Segmented Neutrophils % 57 40-70 % Lymphocytes % (Manual) 34 22-44 % Monocytes % (Manual) 6 2-9 % Eosinophils % (Manual) 3 1-6 % Nucleated Red Blood Cells 0.0 0.0-0.19 % Differential Comment MANUAL DIFFERENTIAL White Cell Morphology Comment Platelet Morphology Comment DECREASED Red Blood Cell Morphology See comments Immature Granulocyte % (Auto) 1.3 H 0-1 % Neutrophils (%) (Auto) 45.3 40.0-77.0 % Lymphocytes (%) (Auto) 41.5 21.0-51.0 % Monocytes (%) (Auto) 8.5 3.0-13.0 % Eosinophils (%) (Auto) 2.8 0.0-8.0 % Basophils (%) (Auto) 0.6 0.0-5.0 % Neutrophils # (Auto) 1.4 L 1.8-7.7 K/uL Lymphocytes # (Auto) 1.3 1.0-4.8 K/uL Monocytes # (Auto) 0.3 0.1-1.0 K/uL Eosinophils # (Auto) 0.09 0.00-0.70 K/uL Basophils # (Auto) 0.02 0.00-0.20 K/uL Absolute Immature Granulocyte (auto 0.04 0-1 K/uL Chemistry Labs: Test 09/28/24 11:33 09/28/24 03:56 Range/Units Whole Blood Glucose 154 H 70-110 MG/DL Sodium Level 143 136-145 mmol/L Potassium Level 4.1 3.5-5.1 mmol/L Chloride Level 109 101-111 mmol/L Carbon Dioxide Level 30 21-32 mmol/L Blood Urea Nitrogen 16 7-18 mg/dL Creatinine 1.0 0.5-1.0 mg/dL Glomerular Filtration Rate Calc 60 >90 mL/min Random Glucose 129 H 70-105 mg/dL Total Calcium 8.4 L 8.5-10.1 mg/dL Magnesium Level 1.70 L 1.80-2.40 mg/dL Total Bilirubin 0.4 # 0.2-1.0 mg/dL Aspartate Amino Transf (AST/SGOT) 40 H 10-37 U/L Alanine Aminotransferase (ALT/SGPT) 39 # 12-78 U/L Alkaline Phosphatase 58 50-136 U/L Total Protein 5.2 L 6.0-8.3 g/dL Albumin 2.7 L 3.5-5.0 g/dL DIAGNOSTICS / RADIOLOGY RESULTS: ORDERING PHYSICIAN: CARMINA TRAVIS PROCEDURE: GIBLEED - NM GI BLOOD LOSS IMAG NM GI BLOOD LOSS IMAG REASON: melena. COMPARISON: None TECHNIQUE: GI bleeding scan was performed with 27 mCi of technetium pertechnetate tagged RBCs through intravenous route. FINDINGS: No scintigraphic evidence of acute GI bleed is seen. IMPRESSION: No scintigraphic evidence of active GI bleed is seen. PLAN NEURO: Minimize central acting medications as possible. Maintain fall precautions, adequate lighting during the day PULMONARY: Supplemental 02 as needed. Maintain aspiration precautions at all times CARDIOVASCULAR: Follow hemodynamics. Vital signs per facility protocol GI & NUTRITION: Continue with nutritional support. Continue stool softeners and laxatives as needed. follow GI recommendations KIDNEYS & ELECTROLYTES: Strict monitoring of intake, output and overall fluid balance. Avoid nephrotoxic medications to the extent possible. Medications to be dosed according to renal function. Monitor electrolytes and replace as needed ENDOCRINE: Maintain blood glucose between 100-180 at all times. Hypoglycemia protocol in place INFECTIOUS DISEASE: Trend temperature, WBC and procalcitonin level Follow cultures, deescalate antibiotics as soon as possible. Panculture if new onset fever Continue on Zosyn day #3 ONCOLOGY/HEMATOLOGY/COAGULATION: Monitor for s/s of bleeding Monitor hemoglobin, coagulation studies as needed SKIN: Pressure ulcer prevention per facility protocol Specialty mattress ORTHO/REHAB: Continue PT/OT Prophylaxis: Continue GI and DVT prophylaxis: No anticoagulant due to GI bleed Code Status: Full Resuscitation Disposition: JOSEFINA HOLT NP Sep 28, 2024 15:23
[2024-09-28 16:00] VITALS: BP 141/66; PULSE 60; RESP 16; TEMP 97.9
[2024-09-28] MEDS ORDERED: MAGNESIUM 2GM PREMIX 50ML 50 ML IV SCH (16:30)
[2024-09-28 20:00] VITALS: BP 131/63; PULSE 57; RESP 18; TEMP 98; O2SAT 97
[2024-09-29] VITALS: BP 111/46; PULSE 56; RESP 18; TEMP 98
[2024-09-29 04:00] VITALS: BP 110/52; PULSE 57; RESP 18; TEMP 98.2
[2024-09-29 05:14] LABS: HEMATOCRIT 25.9 % (36-48); MEAN CORPUSCULAR HEMOGLOBIN 28.9 pg (27.0-33.0); MEAN CORPUSCULAR HGB CONC 33.2 g/dL (32.0-36.0); MEAN CORPUSCULAR VOLUME 86.9 fL (79-99); NUCLEATED RED BLOOD CELLS 0.4 % (0.0-0.19); RED BLOOD CELL COUNT(AUTO) 2.98 MIL/uL (4.00-5.50); RED CELL DISTRIBUTION WIDTH 14.9 % (11.0-15.5); WHITE BLOOD COUNT (AUTO) 4.7 K/uL (4.8-10.8)
[2024-09-29 05:51] LABS: ALBUMIN 2.5 g/dL (3.5-5.0); BILIRUBIN,TOTAL 0.3 mg/dL (0.2-1.0); MAGNESIUM 1.7 mg/dL (1.80-2.40); POTASSIUM 3.9 mmol/L (3.5-5.1); TOTAL PROTEIN, SERUM 5.1 g/dL (6.0-8.3)
[2024-09-29 08:00] VITALS: BP 104/45; PULSE 55; RESP 15; TEMP 98; O2SAT 97
[2024-09-29] MEDS ORDERED: COMPOUND IV MISC 1 EACH IVSOLN MISC PRN (11:00)
[2024-09-29] MEDS: Solu-medROL 40MG VIAL IVP ONE (11:05)
[2024-09-29] MEDS: DiphenhydrAMINE HCL 50 MG/ML VIAL IV ONE (11:05)
[2024-09-29 12:00] VITALS: BP 96/51; PULSE 63; RESP 16; TEMP 97.3
[2024-09-29] MEDS: SOD FERRIC GLUC COMPLEX/SUC 125 MG in 0.9%NACL 100ML 100 ML IV SCH (12:08)
[2024-09-29] MEDS ORDERED: METO10TA3 PO (15:51)
--- NOTE | 2024-09-29 15:51 | DS ---
[facility] DISCHARGE SUMMARY Date Patient Seen: Sep 29, 2024 Time of Visit: 15:51 Supervising Physician: Dr. Anjum Hobbs Primary Care Physician: [ Dr. Roberto Browne] Inpatient Consults: [GI-Dr. Hawley ], (Oncologist) PROBLEM LIST: Melena-POA, on oral iron at home S/P EGD on 09/26/2024 with finding of chronic gastritis and normal duodenum S/P Bleeding scan negative, follow up outpatient for pillcam Acute anemia, POA, requiring PRBC on 09/27/[address] AP, POA, received 5 days of IV ABX. LINO on CKD 3, POA Dehydration, POA Primary HTN Diabetes mellitus type 2 Chronic pain Hyperlipidemia Chronic anemia HX of small bowel AVM's Prior EGD revealed erythematous duodenopathy (07/2024) HPI (per admitting provider): [Patient is a 73-year-old female with PMH significant for HTN, dm, chronic anemia, CKD who was presented to the ED concerning acute onset man in his started this morning. Patient claims that she did not eat or drink anything when she started having black stool. She reports a total of 8-10 episodes of melanotic stool. She denies other constitutional symptoms and there was no hematemesis, hematochezia or abdominal pain. Patient reports that around July, she had a similar episode and had undergone endoscopic procedure but without significant findings. Physical assessment was unrevealing without abdominal tenderness. Goals of care were discussed with the patient verbalizes understanding and agreement. HOSPITAL COURSE: Patient was admitted for melanotic stools x 8 times with anemia requiring PRBC transfusion. GI and oncology consulted. She underwent EGD on 09/26/2024 with findings of chronic gastritis and bleeding scan which was negative. Today, patient is AAOX3. Currently on room air. Hemoglobin 8.6. No more episodes of melena or hematochezia. She has been tolerating soft diet. She received two IV iron infusions ordered by oncology, pre-medicated with Benadryl and solu- medrol due to allergy of itchiness and feeling of warmth per patient. Stable for discharged and cleared by consultants. Follow up with GI and Dr. Reynolds for possible bone marrow biopsy. Continued Medications: Ferrous Sulfate (Ferrous Sulfate) 325 Mg (65 Mg Iron) Ectab 1 TAB PO DAILY for 30 Days, #30 TAB 0 Refills Glimepiride (Glimepiride) 4 Mg Tablet 8 MG PO DAILY, TAB Levothyroxine Sodium (Levothyroxine) 25 Mcg Capsule 25 MCG PO ACBKFST, CAP Metoclopramide HCl (Metoclopramide HCl) 10 Mg Tablet 10 MG PO TIDAC, #90 TAB (This prescription has been renewed) Montelukast Sodium (Montelukast Sodium) 10 Mg Tablet 10 MG PO DAILY, TAB Pantoprazole Sodium (Pantoprazole Sodium) 40 Mg Tablet.dr 40 MG PO BID, #60 TAB 0 Refills Pioglitazone HCl (Pioglitazone HCl) 30 Mg Tablet 30 MG PO DAILY, TAB Pregabalin (Pregabalin) 150 Mg Capsule 150 MG PO BID, CAP Simvastatin (Zocor) 40 Mg Tablet 10 MG PO HS, TAB Sitagliptin Phosphate (Januvia) 100 Mg Tablet 100 MG PO DAILY, TAB PHYSICAL EXAM: GENERAL: alert, weak, awake oriented x 3 HEENT: EOMI, Sclera non icteric, moist mucosa NECK: Supple, no JVD, trachea midline LUNGS: Clear breath sounds bilaterally. No wheezes HEART: Regular rate and rhythm. Normal S1 and S2, without murmurs ABD: Abdomen soft, nontender. Bowel sounds present EXT: No clubbing cyanosis or edema NEURO: Alert and oriented to person, follows commands FOLLOW-UP: Follow-up with PCP in 2-3 days Follow up with Dr. Reynolds RECOMMENDATIONS: See Discharge Instructions This case was seen and discussed with my supervising physician. More than 30 minutes spent on discharge process, including evaluation of the patient, discussion with nursing staff, medication reconciliation and follow-up appoi ntmJOSEFINA Dunne NP Sep 29, 2024 15:51
[2024-09-29 16:00] VITALS: BP 131/56; PULSE 60; RESP 15; TEMP 98.2
--- NOTE | 2024-09-29 18:08 | NUR ---
PATIENT DISCHARGED. 2 IV'S TAKEN OUT WITH CATHETER INTACT. EDUCATION GIVEN TO PATIENT ON FOLLOW UP APPOINTMENTS AND MEDICATIONS TO TAKE. PATIENT TAKEN DOWNSTAIRS BY RIDDLER OPERATOR
[2024-09-30] MEDS ORDERED: SOD FERRIC GLUC COMPLEX/SUC 125 MG in 0.9%NACL 100ML 100 ML IV SCH (12:00)
--- NOTE | 2024-10-02 11:02 | NUR ---
Transitional Phone Call Spoke with patient in [place], states " me candynto un poco mejor." [facility] is continuing to take home medications as instructed; no questions or concerns with medications. [facility] has the follow up appointment with PCP - Dr. Roberto Browne today 10/02/2024 at 1230; has the follow up appointment with GI - Dr. Yakov Hawley on 10/10/2024; has the follow up appointment with oncology - Dr. Zana Reynolds on 10/11/2024. No questions or concerns at this time.
== END 2024-09-29 18:30 | disposition home or self-care (01) | DRG 378 ==
LOC: EDH 14:44 → OBSVTOIN 14:45 → EDHIP 14:45 → 4CH 22:50
PROVIDERS: ADMIT Internal Medicine; ATTEND Internal Medicine
PROC: 0DB68ZX Excision of Stomach, Via Natural or Artificial Opening Endoscopic, Diagnostic (ICD-10-PCS; 2024-09-26)
PROC: 0DB78ZX Excision of Stomach, Pylorus, Via Natural or Artificial Opening Endoscopic, Diagnostic (ICD-10-PCS; 2024-09-26)
PROC: 30233N1 Transfusion of Nonautologous Red Blood Cells into Peripheral Vein, Percutaneous Approach (ICD-10-PCS; principal; 2024-09-27)
DX: K29.51 Unspecified chronic gastritis with bleeding (principal); D62 Acute posthemorrhagic anemia; N17.9 Acute kidney failure, unspecified; N39.0 Urinary tract infection, site not specified; K52.9 Noninfective gastroenteritis and colitis, unspecified; N18.30 Chronic kidney disease, stage 3 unspecified; E11.22 Type 2 diabetes mellitus with diabetic chronic kidney disease; D63.1 Anemia in chronic kidney disease; I12.9 Hypertensive chronic kidney disease with stage 1 through stage 4 chronic kidney disease, or unspecified chronic kidney disease; E86.0 Dehydration; E78.5 Hyperlipidemia, unspecified; G89.29 Other chronic pain; Z79.84 Long term (current) use of oral hypoglycemic drugs; Z79.899 Other long term (current) drug therapy
CPT/HCPCS: 36415; 36430; 43239; 74150; 76770; 78278; 80048; 80053; 81001; 82270; 82728; 82948; 83540; 83550; 83690; 83735; 84100; 84443; 84484; 85014; 85018; 85025; 85027; 85045; 85610; 85730; 86850; 86900; 86901; 86923; 87086; 93005; 96374; 99285; A4606; A9512; G0378; J1200; J1756; J1815; J2003; J2354; J2470; J2543; J2704; J2916; J2919; J3490; J7030; J7040; J7050; J7120; P9016; A4215; A4222; A4223; A4600; A4620

== ENCOUNTER → 2024-11-06 | Outpatient (CLI) | payer OTHER, MEDICARE ==
[~2024-11-06] MED LIST changes: -BACL5TAB PO; +FERS325 PO; -RESM80TA PO
--- NOTE | 2024-11-06 15:00 | HMCSR ---
APPROVED REPORT EXAM: Two-dimensional and M-mode echocardiogram with Doppler and color Doppler. INDICATION ICD: I45.10 Unspecified Right bundle branch block, R55 2D Dimensions RVDd3.8 cmLVEF(%)60.4 (>50%)LVED Vol(simp.)82.0 mL IVSd1.0 (0.7-1.1cm)FS(%)32 %LVES Vol(simp.)34.0 mL LVDd5.2 (3.8-5.6cm)LA (2D)4.1 (1.6-4.0cm)LVEF(%, simp.)59 % PWd1.1 (0.7-1.1cm)Ao Root(2D)3.4 (2.0-3.7cm)LA ESV INDEX (BP)31.85 mL/m2 IVSs1.2 cmLVOT diam2.1 (1.8-2.4cm) LVDs3.5 (2.5-4.0cm)IVC diam1.1 cm PWs1.7 cm M-Mode Dimensions EPSS1.0 cm LA (MM)4.2 (1.6-4.0cm) Ao Root(MM)3.2 (2.0-3.7cm) Aortic Valve AoV Vmax1.7 m/Catie Peak GR11.1 mmHgLVOT Vmax1.0 m/s AoV VTI0.4 mAo Mean GR6.0 mmHgLVOT VTI0.23 m ANGELA (VMAX)2.02 cm2Al P1/2T487 msAVA (VTI) 2.1 cm2 Mitral Valve MV E Vmax63.4 cm/sDECEL Atah197 ms MV A Vmax72.3 cm/sP 1/2 T64 ms E/A ratio0.9MVA (PHT)3.5 cm2 TDI E/E' Zywaqk78.6E/E' Lateral7.1 Medial E' Peak V5.99 cm/sLateral E' Peak V8.99 cm/s Pulmonary Valve PV Vmax0.9 m/sPV VTI0.21 mPV Mean GR2.2 mmHg PV Peak GR3.3 mmHg Tricuspid Valve TR Vmax2.5 m/sRVSP23.5 mmHg TR Peak GR26.7 mmHg Left Ventricle The left ventricle is normal size. There is normal LV segmental wall motion. There is normal left my tricular wall thickness. LVEF is 55-60%. Indeterminate diastolic dysfunction. Right Ventricle The right ventricle is normal size. The right ventricular systolic function is normal. Atria The left atrium size is normal. The right atrium size is normal. Aortic Valve Aortic valve is trileaflet and opens well. Mild aortic regurgitation is present. There is no aortic v alvular stenosis. Mitral Valve The mitral valve is normal in structure. There is trace of mitral valve regurgitation noted. There is no mitral valve stenosis Tricuspid Valve The tricuspid valve is normal in structure. There is mild tricuspid valve regurgitation noted. Pulmonic Valve The pulmonary valve is normal in structure. There is no pulmonic valvular regurgitation. Great Vessels The aortic root is normal in size. The IVC is normal in size and collapses >50% with inspiration. Pericardium There is no pericardial effusion. Other Information Quality : Adequate Conclusion LVEF is 55-60%. Mild aortic regurgitation is present. There is mild tricuspid valve regurgitation noted.
== END | disposition home or self-care (01) ==
LOC: RAH 12:56
PROVIDERS: ATTEND Family Medicine
DX: I08.2 Rheumatic disorders of both aortic and tricuspid valves (principal); I45.10 Unspecified right bundle-branch block; R55 Syncope and collapse
CPT/HCPCS: 93306

== ENCOUNTER 2025-01-19 13:06 | Emergency (ER) | payer OTHER, MEDICARE ==
[~2025-01-19] VITALS: Ht 157.5 cm; Wt 75.3 kg
[2025-01-19] MEDS: 0.9%NACL 1000ML 1,000 ML IV ONE (14:01)
[2025-01-19 14:03] LABS: IMMATURE GRANULOCYTE ABSOLUTE 0.04 K/uL (0-1); NUCLEATED RED BLOOD CELLS 0.0 % (0.0-0.19); PLATELET COUNT (AUTO) 101 K/uL (130-400); RED BLOOD CELL COUNT(AUTO) 3.89 MIL/uL (4.00-5.50); RED CELL DISTRIBUTION WIDTH 14.3 % (11.0-15.5); WHITE BLOOD COUNT (AUTO) 7.7 K/uL (4.8-10.8)
[2025-01-19 14:09] LABS: CREATININE 1.3 mg/dL (0.5-1.0); GLOMERULAR FILTR. RATE CALC 43.0 mL/min (>90); GLUCOSE,RANDOM 254.0 mg/dL (70-105); SODIUM SERUM 136.0 mmol/L (136-145); UREA NITROGEN, BLOOD 25.0 mg/dL (7-18)
[2025-01-19 15:25] VITALS: BP 127/65; PULSE 64; RESP 16; TEMP 98.4; O2SAT 98
[2025-01-19] MEDS ORDERED: ONDA-243 PO (16:22)
--- NOTE | 2025-01-19 16:22 | ERN ---
ED Note History of Present Illness Stated Complaint: TEETH PROBLEM Chief Complaint: Other Problems Time Seen by MD: 13:37 Dictation: 74-year-old female presenting to the emergency department for generalized weakness and dehydration patient reported having a recent dental procedure few weeks ago and says that she still having discomfort and difficulty eating solid foods. Allergies: Coded Allergies: No Known Allergies (Unverified Allergy, Unknown, 08/30/13) Home Meds Active Scripts Metoclopramide HCl (Metoclopramide HCl) 10 Mg Tablet, 10 MG PO TIDAC, #90 TAB Prov:JOSEFINA MOSQUEDA ADMITTING CLERK 09/29/24 Pantoprazole Sodium (Pantoprazole Sodium) 40 Mg Tablet.dr, 40 MG PO BID, #60 TAB 0 Refills Prov:JOSEFINA MOSQUEDA [facility] 02/09/23 Reported Medications Ferrous Sulfate (Ferrous Sulfate) 325 Mg (65 Mg Iron) Ectab, 1 TAB PO DAILY for 30 Days, #30 TAB 0 Refills 09/25/24 Pregabalin (Pregabalin) 150 Mg Capsule, 150 MG PO BID, CAP 09/15/23 Simvastatin (ZOCOR) 40 Mg Tablet, 10 MG PO HS, TAB 03/27/22 Levothyroxine Sodium (Levothyroxine) 25 Mcg Capsule, 25 MCG PO ACBKFST, CAP 03/27/22 Pioglitazone HCl (Pioglitazone HCl) 30 Mg Tablet, 30 MG PO DAILY, TAB 03/27/22 Sitagliptin Phosphate (Januvia) 100 Mg Tablet, 100 MG PO DAILY, TAB 03/27/22 Montelukast Sodium (Montelukast Sodium) 10 Mg Tablet, 10 MG PO DAILY, TAB 03/27/22 Glimepiride (Glimepiride) 4 Mg Tablet, 8 MG PO DAILY, TAB 03/27/22 Past Medical History Past Medical History: Diabetes-Type II, Hypertension Additional Past Medical Hx: OSTEOPEROSIS Surgical History: None Social History: Negative, Lives with family History: Not Applicable Review of System Dictation Constitutional: Negative for fever,chills, and weight loss Eyes: Negative for injury, pain,redness, and discharge ENT: Per HPI Cardiovascular: Negative for chest pain, palpitations, and edema Respiratory: Negative for shortness of breath, cough, and wheezing, Abdomen/GI: Negative for abdominal pain, nausea, vomiting, diarrhea, and constipation Back: Negative for injury and pain : Negative for injury, bleeding and discharge MS/Extremity: Negative for injury and deformity Skin: Negative for rash, and discoloration Neuro: Per HPI Initial Vital Sign VS Vital Signs Date Time Temp Pulse Resp B/P (MAP) Pulse Ox O2 Delivery O2 Flow Rate FiO2 01/19/25 13:08 98.4 68 16 118/57 98 Room Air 01/19/25 13:44 0 21 Physical Exam Dictation General: awake, alert, NAD Head/Face: Normocephalic, atraumatic Eyes: PERRL, EOMI, vision at baseline ENT: oral cavity clear, TMs clear, no signs of infection Neck: Trachea midline, supple, no nuchal rigidity Cardiovascular: RRR, normal S1/S2, No MRGs, no JVD Respiratory: CTAB, no respiratory distress, No rales or wheezes Abdomen: Soft, non-tender, non-distended, normal bowel sounds, no guarding or rebound. Skin: Warm, dry, normal turgor, no rash MS/Extremity: Pulses equal, no cyanosis, neurovascular intact, FROM Neuro: COAx4, GCS 15, strength 5/5, CN 2-12 intact, normal cerebellar exam, normal gait, Psych: Normal behavior, mood, and affect normal Results (Laboratory/Radiology) Laboratory/Radiology Laboratory Tests Test 01/19/25 13:50 White Blood Count 7.7 K/uL (4.8-10.8) Red Blood Count 3.89 MIL/uL (4.00-5.50) L Hemoglobin 11.4 g/dL (12.0-16.0) L Hematocrit 35.2 % (36-48) L Mean Corpuscular Volume 90.5 fL (79-99) Mean Corpuscular Hemoglobin 29.3 pg (27.0-33.0) Mean Corpuscular Hemoglobin Concent 32.4 g/dL (32.0-36.0) Red Cell Distribution Width 14.3 % (11.0-15.5) Platelet Count 101 K/uL (130-400) L Mean Platelet Volume 10.9 fL (7.5-10.5) H Immature Granulocyte % (Auto) 0.5 % (0-1) Neutrophils (%) (Auto) 89.1 % (40.0-77.0) H Lymphocytes (%) (Auto) 7.2 % (21.0-51.0) L Monocytes (%) (Auto) 3.0 % (3.0-13.0) Eosinophils (%) (Auto) 0.1 % (0.0-8.0) Basophils (%) (Auto) 0.1 % (0.0-5.0) Neutrophils # (Auto) 6.9 K/uL (1.8-7.7) Lymphocytes # (Auto) 0.6 K/uL (1.0-4.8) L Monocytes # (Auto) 0.2 K/uL (0.1-1.0) Eosinophils # (Auto) 0.01 K/uL (0.00-0.70) Basophils # (Auto) 0.01 K/uL (0.00-0.20) Absolute Immature Granulocyte (auto 0.04 K/uL (0-1) Nucleated Red Blood Cells 0.0 % (0.0-0.19) White Cell Morphology Comment See comments Sodium Level 136 mmol/L (136-145) Potassium Level 4.7 mmol/L (3.5-5.1) Chloride Level 102 mmol/L (101-111) Carbon Dioxide Level 30 mmol/L (21-32) Blood Urea Nitrogen 25 mg/dL (7-18) H Creatinine 1.3 mg/dL (0.5-1.0) H Glomerular Filtration Rate Calc 43 mL/min (>90) Random Glucose 254 mg/dL (70-105) H Total Calcium 8.7 mg/dL (8.5-10.1) Labs Reviewed?: Yes ED Course ED Course Orders Procedure Category Date Status Time Basic Metabolic Panel LAB 01/19/25 Complete 13:42 Cbc With Differential LAB 01/19/25 Complete 13:42 Ondansetron 4mg Inj PHA 01/19/25 Complete (Zofran 4mg Inj) 13:42 Ketorolac PHA 01/19/25 Complete Tromethamine 15mg/Ml 13:42 0.9%Nacl 1000ml (Ns PHA 01/19/25 Complete 1000ml) 14:00 Current Medications Medications (Trade) Dose Ordered Sig/Adam Route PRN Reason Start Time Stop Time Status Last Admin Dose Admin Ketorolac Tromethamine (toRADol) 15 mg ONCE STAT IV 01/19/25 13:42 01/19/25 13:46 DC 01/19/25 14:01 Ondansetron HCl (zoFRAN 4MG INJ) 4 mg ONCE STAT IVP 01/19/25 13:42 01/19/25 13:45 DC 01/19/25 14:01 Sodium Chloride 1,000 ml @ 0 mls/hr ONCE ONCE IV 01/19/25 14:00 01/19/25 14:01 DC 01/19/25 14:01 Vital Signs Date Time Temp Pulse Resp B/P (MAP) Pulse Ox O2 Delivery O2 Flow Rate FiO2 01/19/25 15:25 98.4 64 16 127/65 98 Room Air* 0 21 01/19/25 13:44 98.4 65 16 125/62 98 Room Air* 0 21 01/19/25 13:08 98.4 68 16 118/57 98 Room Air Medical Decision Making MDM MDM: Differential diagnosis: Rationale: Tests considered and ordered secondary to shared decision making include: Previous outside records reviewed: Old ER visits. Risk of complication and/or morbidity or mortality of patient management: None Medications-Per medication reconciliation Need for hospitalization: Patient does not meet criteria for hospitalization. Need for emergency major/minor surgery: No There are no social concerns with this patient. Prescription drug management Prescriptions will include symptomatic care Patient's prior external medical records from other ER visits were reviewed by me as indicated. Prior testing and results from previous visits were reviewed. Prior tests were taken into account with medical decision making and resource utilization, independent historian/historians were used to obtain complete medical history. I independently interpreted the test that were performed, results were reviewed by me and considered findings on radiology if ordered. Medical management and examination interpretation discussions were had by me with other qualified healthcare professionals as indicated for the patient's care. 74-year-old female with weakness dehydration, stable exam negative workup IV fluids given symptoms improved DX & DISP Disposition: Discharge Departure Impression: Primary Impression: Generalized weakness Condition: Stable Scripts Ondansetron (Ondansetron Odt) 4 Mg Tab.rapdis 4 MG PO BID for vomiting for 5 Days, #10 TAB Prov: DEMIAN ELDER MD 01/19/25 Referrals: DEANGELO TUTTLE MD (PCP) DEMIAN ELDER MD Jan 19, 2025 16:22
== END 2025-01-19 16:23 | disposition home or self-care (01) ==
LOC: EDH 13:06
DX: R53.1 Weakness (principal); E11.9 Type 2 diabetes mellitus without complications; I10 Essential (primary) hypertension; Z79.899 Other long term (current) drug therapy; Z79.84 Long term (current) use of oral hypoglycemic drugs
CPT/HCPCS: 99283; 96374; 96375; 80048; 85025; 36415; J1885; J7030; J2405